=== PATIENT | female | born 1995 | race Caucasian/White ===

== ENCOUNTER → 2017-11-12 | Outpatient (CLI) | payer BC ==
[2017-11-12 14:03] LABS: HCG, SERUM QUANTITATIVE 12352 MIU/ML
== END ==
LOC: M SMT 11:41
DX: O20.0 Threatened abortion (principal)
CPT/HCPCS: 84702

== ENCOUNTER → 2017-11-15 | Outpatient (CLI) | payer BC ==
[2017-11-15 19:42] LABS: HCG, SERUM QUANTITATIVE 14076 MIU/ML
== END ==
LOC: M SMT 11:39
DX: O20.0 Threatened abortion (principal)
CPT/HCPCS: 84702

== ENCOUNTER 2017-11-19 12:53 | Day surgery (SDC) | payer BC ==
[2017-11-19] MEDS ORDERED: LIDOCAINE 1% SDV 5 ML VIAL SQ (13:00)
[2017-11-19 13:21] LABS: HEMATOCRIT 40.1 % (36.0-47.0); HEMOGLOBIN 13.9 g/dl (12.0-15.5); MEAN CORPUSCULAR HEMOGLOBIN 29.2 pg (27.0-33.0); MEAN CORPUSCULAR HGB CONC 34.7 g/dl (32.0-36.5); MEAN CORPUSCULAR VOLUME 84.2 fl (80.0-96.0); PLATELET COUNT, AUTOMATED 312 10^3/uL (150-450); RED BLOOD COUNT 4.76 10^6/uL (4.00-5.40); RED CELL DISTRIBUTION WIDTH 11.9 % (11.5-14.5); WHITE BLOOD COUNT 5.5 10^3/uL (4.0-10.0)
[2017-11-19] MEDS: LR 1,000 ML IV (13:41)
[2017-11-19] MEDS ORDERED: MIDAZOLAM INJ 2 MG/2 ML VIAL (J2250) As Ordered (13:52)
[2017-11-19] MEDS ORDERED: LIDOCAINE 2% INJ 100 MG/5 ML SDV (FOR ANES.) As Ordered (13:53)
[2017-11-19] MEDS ORDERED: ONDANSETRON 4MG/2ML VIAL (J2405) As Ordered (13:53)
[2017-11-19] MEDS ORDERED: KETOROLAC 60 MG/2 ML VIAL (J1885) As Ordered (13:53)
[2017-11-19] MEDS ORDERED: fentaNYL 100 MCG/2 ML INJECTION (J3010) As Ordered ×2 (13:53→14:39)
[2017-11-19] MEDS ORDERED: PROPOFOL 200 MG/20 ML VIAL As Ordered (13:53)
[2017-11-19] MEDS ORDERED: dexameTHASONE 4 MG/ML 1ML VIAL (J1100) As Ordered (13:53)
[2017-11-19] MEDS ORDERED: METOCLOPRAMIDE INJ 10MG/2ML VIAL (J2765) As Ordered (13:53)
[2017-11-19] MEDS: DOXYCYCLINE HYCLATE 100 MG in D5W MINI-BAG PLUS 100 ML IV (14:11)
[2017-11-19] MEDS: METHYLERGONOVINE MALEATE 0.2 MG/ML VIAL (J2210) As Ordered (14:41)
[2017-11-19] MEDS ORDERED: NALOXONE INJ 0.4 MG/1 ML VIAL (J2310) As Ordered (14:49)
[2017-11-19] MEDS ORDERED: LR 1,000 ML IV ×2 (15:30)
[2017-11-19] MEDS ORDERED: fentaNYL 100 MCG/2 ML INJECTION (J3010) IV (15:30)
[2017-11-19] MEDS ORDERED: ONDANSETRON 4MG/2ML VIAL (J2405) IV (15:30)
[2017-11-19] MEDS: DOXYCYCLINE HYCLATE 100 MG TAB PO (15:56)
== END 2017-11-19 18:43 | disposition home or self-care (01) ==
LOC: M SDC 12:53
DX: O02.1 Missed abortion (principal)
CPT/HCPCS: 59820

== ENCOUNTER → 2018-08-08 | Outpatient (CLI) | payer BC ==
[2018-08-08 13:24] LABS: BASO % 0.5 % (0.0-1.0); EOS # 0.1 10^3/uL (0.0-0.50); EOS % 2.1 % (0.0-3.0); HEMATOCRIT 41.8 % (36.0-47.0); HEMOGLOBIN 14.3 g/dl (12.0-15.5); LYMPH # 2.3 10^3/uL (1.5-6.5); LYMPH % 35.1 % (24.0-44.0); MEAN CORPUSCULAR HEMOGLOBIN 29.2 pg (27.0-33.0); MEAN CORPUSCULAR HGB CONC 34.2 g/dl (32.0-36.5); MEAN CORPUSCULAR VOLUME 85.5 fl (80.0-96.0); MONO # 0.6 10^3/uL (0.0-0.8); MONO % 8.9 % (0.0-5.0); NEUTROPHILS # 3.5 10^3/uL (1.8-7.7); NEUTROPHILS % 53.2 % (36.0-66.0); PLATELET COUNT, AUTOMATED 287 10^3/uL (150-450); RED BLOOD COUNT 4.89 10^6/uL (4.00-5.40); WHITE BLOOD COUNT 6.6 10^3/uL (4.0-10.0)
[2018-08-08 14:15] LABS: HEPATITIS C VIRUS ABY INDEX 0.1 INDEX (<0.8); HIV 1&2 SCREEN CENTAUR NEGATIVE (NEGATIVE); RUBELLA IgG QUALITATIVE IMMUNE (IMMUNE)
[2018-08-08 15:22] LABS: CHLAMYDIA DNA AMPLIFICATION NEGATIVE (NEGATIVE); GC DNA AMPLIFICATION NEGATIVE (NEGATIVE)
== END ==
LOC: M SMT 10:08
PROVIDERS: ATTEND Specialist
DX: Z36.89 Encounter for other specified antenatal screening (principal); Z3A.10 10 weeks gestation of pregnancy

== ENCOUNTER → 2018-10-10 | Outpatient (CLI) | payer BC ==
--- NOTE | 2018-10-10 11:21 | REP ---
OB ULTRASOUND: Real-time sonographic evaluation of the gravid uterus is performed. There is a single living intrauterine gestation. Estimated gestational age 19 weeks 2 days, EDC 03/04/2019. Today's measurements indicate appropriate growth. BPD 44 mm = 19 weeks 2 days, 51st percentile HC 168 mm = 19 weeks 3 days, 54th percentile AC 151 mm = 20 weeks 3 days, 73rd percentile Femur length 32 mm = 19 weeks 6 days, 63rd percentile HC/AC ratio 1.11 within normal range. Estimated weight 327 grams, 74th percentile. Cervix is closed and measures 5 cm in length. heart rate 146 beats per minute. SEEN/GROSSLY UNREMARKABLE Lateral ventricles Yes Posterior fossa Yes Upper lip Yes Four-chamber heart Yes LVOT Yes RVOT Yes Stomach Yes Cord insertion Yes Three vessel cord Yes Kidneys Yes Bladder Yes Spine Yes position: Variable. Placenta: Anterior and grade 0 with no previa or abruption. Amniotic fluid: Within normal limits. Electronically Signed by Juan Gibson MD 10/10/2018 12:47 P
== END ==
LOC: M RAD 10:18
PROVIDERS: ATTEND Obstetrics & Gynecology
DX: Z36.89 Encounter for other specified antenatal screening (principal); Z3A.19 19 weeks gestation of pregnancy

== ENCOUNTER → 2018-11-17 | Outpatient (CLI) | payer BC ==
[2018-11-17 13:16] LABS: BASO % 0.5 % (0.0-1.0); EOS # 0.1 10^3/uL (0.0-0.50); HEMATOCRIT 38.6 % (36.0-47.0); HEMOGLOBIN 12.8 g/dl (12.0-15.5); LYMPH # 1.9 10^3/uL (1.5-6.5); LYMPH % 23.2 % (24.0-44.0); MEAN CORPUSCULAR HEMOGLOBIN 30.4 pg (27.0-33.0); MEAN CORPUSCULAR HGB CONC 33.2 g/dl (32.0-36.5); MEAN CORPUSCULAR VOLUME 91.7 fl (80.0-96.0); MONO # 0.6 10^3/uL (0.0-0.8); MONO % 6.7 % (0.0-5.0); NEUTROPHILS # 5.6 10^3/uL (1.8-7.7); NEUTROPHILS % 68.1 % (36.0-66.0); PLATELET COUNT, AUTOMATED 243 10^3/uL (150-450); RED BLOOD COUNT 4.21 10^6/uL (4.00-5.40); WHITE BLOOD COUNT 8.2 10^3/uL (4.0-10.0)
[2018-11-17 13:45] LABS: CREATININE,RANDOM URINE 36.6 MG/DL; TOTAL PROTEIN,RANDOM URINE < 5.0 MG/DL (0.0-12.0)
[2018-11-17 13:50] LABS: ALT/SGPT 14 U/L (12-78); BILIRUBIN,TOTAL 0.3 MG/DL (0.2-1.0); CREATININE FOR GFR 0.57 MG/DL (0.55-1.30); GLOMERULAR FILTRATION RATE > 60.0 (>60); LDH LACTATE DEHYDROGENASE 193 U/L (84-246); URIC ACID 3.1 MG/DL (2.6-6.0)
== END ==
LOC: M SMT 09:47
PROVIDERS: ATTEND Advanced Practice Midwife
DX: R03.0 Elevated blood-pressure reading, without diagnosis of hypertension (principal); Z34.82 Encounter for supervision of other normal pregnancy, second trimester; Z3A.00 Weeks of gestation of pregnancy not specified

== ENCOUNTER → 2019-01-06 | Outpatient (CLI) | payer BC ==
--- NOTE | 2019-01-06 09:57 | REP ---
Clinical: Maternal hypertension. Comparison: 10/10/2018 . Findings: Examination demonstrates a single live intrauterine in cephalic presentation. motion is identified by technologist. Placenta is noted anterior and grade zero without evidence for placenta previa or abruption. Amniotic fluid volume is normal. Cervix appears closed. No evidence for nuchal cord. Gestational age by LMP 31 weeks 6 days with SYMONE 03/04/2019 . Gestational age by current measurements 32 weeks 2 days with SYMONE 03/01/2019 . FHR equals 128 beats per minute. BPD 8.1 cm 32 weeks 4 days HC 29.8 cm 33 weeks 0 days AC 27.3 cm 31 weeks 3 days FL 6.0 cm 31 weeks 2 days HL 5.5 cm 32 weeks 0 days HC/AC ratio 1.09 Estimated weight 1797 grams ( 37 percentile). Anatomical assessment demonstrates normal structures including cranium, choroid plexus, cavum, cerebellum/posterior fossa, facial features, lungs, four-chamber heart/ventricular outflow tracts, diaphragm, stomach, cord insertion/three-vessel cord, kidneys/bladder, and spine. Impression: Single live intrauterine in cephalic presentation demonstrating appropriate interval growth. No gross abnormalities are identified. Electronically Signed by Jared Gallegos MD 01/06/2019 09:49 A
== END ==
LOC: M RAD 08:55
PROVIDERS: ATTEND Advanced Practice Midwife
DX: O13.3 Gestational [pregnancy-induced] hypertension without significant proteinuria, third trimester (principal); Z3A.32 32 weeks gestation of pregnancy

== ENCOUNTER → 2019-01-27 | Outpatient (CLI) | payer BC ==
[~2019-01-27] MED LIST: AMOX875T2 PO; LABE100T36 PO; MULTTAB20 PO
--- NOTE | 2019-01-27 14:03 | REP ---
OB ULTRASOUND: Real-time sonographic evaluation of gravid uterus performed. There is a single living intrauterine gestation, estimated gestational age 34 weeks 6 days, EDC 03/04/2019. Today's measurements indicate appropriate growth. BPD 85 mm = 34 weeks 1 day, 38th percentile HC 315 mm = 35 weeks 3 days, 58th percentile AC 310 mm = 35 weeks 0 days, 51st percentile Femur length 67 mm = 34 weeks 2 days, 41st percentile HC/AC ratio 1.02, within normal range. Estimated weight 2500 grams, 45th percentile. Cervix closed and measures 4.3 cm in length. heart rate 131 beats per minute. Amniotic fluid within normal limits, ASHA 12.2 within normal range of 7.9 and 24.9. S/D ratio 2.74, below normal range of 3.0 to 4.0. RI 0.63, at lower limits of normal range 0.63 - 0.79. Visualized anatomy includes posterior fossa, upper lip, four-chamber heart, left ventricular outflow tract, stomach, three-vessel cord, kidneys and bladder, which are all grossly unremarkable. position vertex. Placenta anterior and grade 2 with no previa or abruption. Electronically Signed by Juan Gibson MD 01/29/2019 07:28 P
== END ==
LOC: M RAD 11:00
PROVIDERS: ATTEND Advanced Practice Midwife
DX: O13.3 Gestational [pregnancy-induced] hypertension without significant proteinuria, third trimester (principal)

== ENCOUNTER → 2019-02-02 | Outpatient (REF) | payer BC | LOC: M LAB REF 13:17 | PROVIDERS: ATTEND Advanced Practice Midwife | DX: O13.3 Gestational [pregnancy-induced] hypertension without significant proteinuria, third trimester (principal) ==

== ENCOUNTER 2019-02-07 04:03 | Inpatient (IN) | payer BC ==
[~2019-02-07] VITALS: Ht 167.6 cm; Wt 77.5 kg
[2019-02-07] VITALS (13 sets, daily range): BP systolic 115–155; BP diastolic 63–90
[2019-02-07] MEDS ORDERED: LACTATED RINGER'S 1000 ML IV STA (04:34)
[2019-02-07] MEDS ORDERED: LABE100T36 PO (04:38)
[2019-02-07] MEDS ORDERED: MULTTAB20 PO (04:38)
[2019-02-07] MEDS ORDERED: AMOX875T2 PO (04:38)
[2019-02-07] MEDS ORDERED: BETAMETHASONE SOLUSPAN 6MG/ML INJ 5ML (J0702) IM SCH (05:00)
[2019-02-07 05:18] LABS: HEMATOCRIT 37.6 % (36.0-47.0); HEMOGLOBIN 12.9 g/dl (12.0-15.5); MEAN CORPUSCULAR HEMOGLOBIN 29.5 pg (27.0-33.0); MEAN CORPUSCULAR HGB CONC 34.3 g/dl (32.0-36.5); PLATELET COUNT, AUTOMATED 275 10^3/uL (150-450); RED BLOOD COUNT 4.37 10^6/uL (4.00-5.40); WHITE BLOOD COUNT 10.1 10^3/uL (4.0-10.0)
[2019-02-07] MEDS ORDERED: FENTANYL 2MCG/ML ROPIVACAINE 0.2% IN 0.9% NACL 100ML IVBAG As Ordered ONE (06:42)
[2019-02-07] MEDS ORDERED: OXYTOCIN 30 UNITS IN 0.9% NaCl 500ML IV BAG (J2590) As Ordered ONE (06:49)
[2019-02-07] MEDS ORDERED: LIDOCAINE 1% MDV 20ML VIAL INFIL ONE (07:45)
[2019-02-07] MEDS ORDERED: ANUSOL HC CREAM 30GM TOP PRN (07:45)
[2019-02-07] MEDS ORDERED: IBUPROFEN 800 MG TAB PO PRN (07:45)
[2019-02-07] MEDS ORDERED: MEASLES,MUMPS,RUBELLA VACCINE INJ (MMR-II) (90707) SC SCH (07:45)
[2019-02-07] MEDS ORDERED: OXYTOCIN DRIP 30 UNITS in APPROPRIATE DILUENT 1 EA IV SCH (07:45)
[2019-02-07] MEDS ORDERED: IBUPROFEN 600 MG TAB PO PRN (07:45)
[2019-02-07] MEDS ORDERED: DIBUCAINE 1% OINTMENT 30GM TOP PRN (07:45)
[2019-02-07] MEDS ORDERED: RHOGAM 300 MCG (1500 IU) INJ (J2790) IM SCH (07:45)
[2019-02-07] MEDS ORDERED: METHYLERGONOVINE MALEATE 0.2 MG TAB PO PRN (07:45)
[2019-02-07] MEDS ORDERED: DOCUSATE SODIUM 100 MG CAP PO PRN (07:45)
[2019-02-07] MEDS ORDERED: ALBUTEROL SULFATE 2.5 MG/0.5 ML INH NEB SOLN NEB ONE (08:00)
--- NOTE | 2019-02-07 10:18 | HPE ---
DATE OF ADMISSION: 02/07/2019 HISTORY OF PRESENT ILLNESS: Patient is a 23-year-old female who was a 2 para 0 0 1 0 at 36 weeks and 3 days gestation with an SYMONE of 03/04/2019 based off of her LMP consistent with her first trimester ultrasound. The patient initiated care in her first trimester with [facility]. Her has been complicated by gestational hypertension which was diagnosed at 24 weeks gestation where she started labetalol 100 mg twice a day. The patient presents to labor and delivery tonight with complaints of contractions and bloody show. In the bathroom while in triage she noted that she had a gush of fluid consistent with spontaneous rupture of fluid. She reports active movement. PAST PREGNANCIES: In November 2017 the patient a MAB with a D&C. LABS: Blood type is O+ with a negative antibody screen. Her hemoglobin and hematocrit in her first trimester was 14.3 and 41.8 with platelets of 287. Her rubella is immune and her VDRL is nonreactive. Her urine culture showed no growth. Hepatitis B surface antigen is negative. HIV is negative. Hepatitis C is nonreactive. Gonorrhea and Chlamydia are both negative. She declined genetic testing. Her 1 hour glucose tolerance test was 88. The hemoglobin and hematocrit in her 3rd trimester of 12.3 and 36.1 with platelets of 231. Patient's GBS was negative. Her preeclamptic labs were all normal. PAST MEDICAL HISTORY: Gestational hypertension during , otherwise no pertinent medical history. SURGICAL HISTORY: Fibroid tumor removed from her breast at the age of 15, and the D and C. FAMILY HISTORY: Noncontributory. SOCIAL HISTORY: Patient denies any history of sexually transmitted infection. She denies any history of abuse, physical, emotional or sexual. She denies history of alcohol or illicit drug use prior to or during . She denies being a smoker. HEART RATE: 135, moderate variability, positive accelerations, no decelerations. Contractions are every 1-2 minutes. VITAL SIGNS: 128/67, heart rate 115, respiratory rate 18 and temperature 98.6. SVE: Large amount of clear fluid noted in the vaginal vault, Positive Nitrazine and positive pooling. SVE: 3/90/ -1. PHYSICAL ASSESSMENT: GENERAL: Alert and oriented times three. RESPIRATORY: Regular rate and no use of accessory muscles. ABDOMEN: Gravid and nontender to touch. Cephalic presentation noted via Gabriel's and SVE. LOWER EXTREMITIES: No edema. No clonus. ASSESSMENT: Intrauterine at 36.3 weeks gestation, negative GBS, category 1 heart rate tracing, premature rupture or membranes, active labor. Admit the patient to labor and delivery, saline lock and labs per unit protocol. Out of bed at poli. Clear liquid diet. Betamethasone injection to be given now. Anesthesia consult per patient's request. Neonatology consult. Anticipate cervical change and spontaneous vaginal delivery. MTDD
[2019-02-07] MEDS: PRENATAL VITAMINS CHEWABLE TABLET PO SCH (10:50)
[2019-02-07] MEDS: AUGMENTIN 875 MG TAB PO SCH ×2 (10:50→20:33)
[2019-02-07 13:21] LABS: ALT/SGPT 22 U/L (12-78); BILIRUBIN,TOTAL 1.1 MG/DL (0.2-1.0); CREATININE FOR GFR 0.49 MG/DL (0.55-1.30); GLOMERULAR FILTRATION RATE > 60.0 (>60); LDH LACTATE DEHYDROGENASE 238 U/L (84-246); URIC ACID 3.6 MG/DL (2.6-6.0)
--- NOTE | 2019-02-07 14:30 | DN ---
DATE: 02/07/2019 TIME: 0658 hours STATUS: Delivered, spontaneous vaginal delivery. PROVIDER: Olga Araujo CNM, [facility] ANESTHESIA: None. ESTIMATED BLOOD LOSS: 400 FINDINGS: Male, 6 pounds 7 ounces, 2910 grams, scores 7 and 9, nuchal cord times one tight, labor, premature rupture of membranes. The patient is a 23-year-old female who is now a 2, para 0-1-1-1 at 36 weeks 6 days gestation who presented to labor and delivery with complaints of contractions and bloody show. Upon arrival, her water broke with clear fluid. The patient progressed to fully at 0646 hours and pushed to a living male in the JER position with restitution to ROT. A nuchal cord times one tight was noted. The anterior shoulder delivered with ease and the corpus immediately followed. The baby was placed on the maternal abdomen and was active and crying with stimulation. The cord was clamped times two after pulsations ceased and cut by the father of the baby. A three vessel cord was noted. The placenta delivered spontaneously and intact at 0703 hours. Uterine hemostasis was achieved via rapid infusion of IV Pitocin and fundal massage. The perineum, vaginal, and cervix were inspected and found to have a first degree perineal laceration that was repaired with a 3-[address]-1. Hemostasis was achieved. The mother received one dose of betamethasone prior to delivery. A dose of albuterol nebulizer was ordered due to wheezing in the patient's lungs bilaterally. She is to continue with Augmentin as prescribed for a sinus infection. Both mother and baby are in stable condition. All counts of instruments and sponges were correct. MTDD
[2019-02-07] MEDS ORDERED: SLF 3 ML SYR IV PRN (18:30)
[2019-02-07] MEDS: LABETALOL 100 MG TAB PO SCH (20:34)
[2019-02-07] MEDS: SLF 3 ML SYR IV SCH (22:36)
[2019-02-08 02:00] VITALS: BP 123/67
[2019-02-08 06:00] VITALS: BP 122/68
[2019-02-08] MEDS: SLF 3 ML SYR IV SCH ×3 (06:55→22:30)
--- NOTE | 2019-02-08 07:42 | NUR ---
PPD#1 S: Doing well w/o complaints. Decreasing lochia. Pain well controlled. O: vss, AF gen: well appearing abd: soft, nttp, FF@u-2 ext: neg calf tenderness A/P: 23yo s/p NSD recovering in stable condition -cont routine care -d/c plans for tomorrow Jasmin Ascencio MD
[2019-02-08] MEDS: AUGMENTIN 875 MG TAB PO SCH ×2 (09:25→21:05)
[2019-02-08] MEDS: PRENATAL VITAMINS CHEWABLE TABLET PO SCH (09:25)
[2019-02-08] MEDS: LABETALOL 100 MG TAB PO SCH ×2 (09:26→21:05)
[2019-02-08 14:00] VITALS: BP 123/74
[2019-02-08 18:00] VITALS: BP 122/69
[2019-02-08 21:15] VITALS: BP 114/57
[2019-02-09 02:00] VITALS: BP 119/67
[2019-02-09 06:00] VITALS: BP 117/65
[2019-02-09 07:46] VITALS: BP 117/61
[2019-02-09] MEDS: AUGMENTIN 875 MG TAB PO SCH (07:46)
[2019-02-09] MEDS: LABETALOL 100 MG TAB PO SCH (07:46)
[2019-02-09] MEDS: PRENATAL VITAMINS CHEWABLE TABLET PO SCH (07:46)
[2019-02-09 10:13] VITALS: BP 112/58
== END 2019-02-09 12:30 | disposition home or self-care (01) | DRG 560 ==
LOC: M LDO 04:03 → M LDI 04:46 → M OBS 09:37
PROVIDERS: ADMIT Advanced Practice Midwife; ATTEND Advanced Practice Midwife
PROC: 10E0XZZ Delivery of Products of Conception, External Approach (ICD-10-PCS; principal; 2019-02-07)
PROC: 0HQ9XZZ Repair Perineum Skin, External Approach (ICD-10-PCS; 2019-02-07)
DX: O42.013 Preterm premature rupture of membranes, onset of labor within 24 hours of rupture, third trimester (principal); O69.1XX0 Labor and delivery complicated by cord around neck, with compression, not applicable or unspecified; Z3A.36 36 weeks gestation of pregnancy; O70.0 First degree perineal laceration during delivery; Z37.0 Single live birth; O13.4 Gestational [pregnancy-induced] hypertension without significant proteinuria, complicating childbirth

== ENCOUNTER → 2019-05-31 | Outpatient (REF) | payer BC | LOC: M LAB REF 17:14 | PROVIDERS: ATTEND Advanced Practice Midwife | DX: Z12.4 Encounter for screening for malignant neoplasm of cervix (principal) ==

== ENCOUNTER → 2019-06-02 | Outpatient (CLI) | payer BC ==
--- NOTE | 2019-06-02 14:52 | REP ---
ULTRASOUND LEFT BREAST: Real-time sonographic evaluation of the left breast performed at the site of a palpable lump in the region of 10 o'clock. There is a predominantly solid heterogeneous nodule superficially at 10 o'clock measuring 1.5 x 1.2 x 1.8 cm. Multiple tiny cystic areas are seen within the nodule. At 9 o'clock there is a 7 mm hypoechoic nodule. IMPRESSION: ACR 4 suspicious. Solid nodule at the palpable lump 10 o'clock maximum diameter 1.8 cm. Recommend ultrasound guided biopsy. In addition there is a hypoechoic nodule at 9 o'clock measuring 7 mm in diameter. Recommend either ultrasound guided biopsy or followup 6 month ultrasound. Electronically Signed by Juan Gibson MD 06/05/2019 09:34 A
== END ==
LOC: M RAD 09:00
PROVIDERS: ATTEND Advanced Practice Midwife
DX: N63.22 Unspecified lump in the left breast, upper inner quadrant (principal)

== ENCOUNTER → 2019-06-21 | Outpatient (CLI) | payer BC ==
[~2019-06-21] MED LIST changes: +LIDOCAINE 1% MDV 20ML VIAL As Ordered ONE; +SODIUM BICARBONATE 8.4% INJ 50MEQ 50 ML VIAL As Ordered ONE
[2019-06-21 12:10] VITALS: BP 133/82
--- NOTE | 2019-06-21 14:54 | ROOPDOC ---
[facility] Report Of Operation Report of Operation DATE OF PROCEDURE: 06/21/19 PREPROCEDURE DIAGNOSES: Left breast masses POSTPROCEDURE DIAGNOSES: left breast masses PROCEDURE: Ultrasound guided left breast biopsy x2 SURGEON: Yovanny Deras AUTO PAINTER HELPER: ANESTHESIA: local anesthetic, 16 cc of mix 10:1 1% lidocaine (lot [id number], expiration Aug 2011) and 8.4% sodium bicarbonate (lot [id number], expiration Mar 2020) ESTIMATED BLOOD LOSS: scant COMPLICATIONS: milk leak from the lower biopsy track DESCRIPTION OF PROCEDURE: Informed consent was obtained in the preop area. The most common risk and possible complications including bleeding, hematoma, bruising, infection, injury to surrounding structures and development of milk fistula were explained to the patient and her mom. Patient expressed understanding. Patient was asked to use breast pump immediately prior to procedure. Patient was taken to the procedure room and placed on the bed in the supine posi tion. Appropriate time out was done stating patients name, date of , and the procedure to be performed. The left breast was prepped and draped in the usual fashion. The ultrasound was used to confirm the location of the main lesion in the left breast at 10:00 3 centimeters from the nipple and the one smaller lesion inferior to that at 9:00. Mix of plain Lidocaine 1% and 8.4 % sodium bicarbonate proportion 10:1 was used to numb the skin, the biopsy site and tissues along the anticipated biopsy tract of the lesion located at 10:00. Small skin incision was made with blade number 11. Temno 17 G introducer and the cannula were inserted through the incision and advanced under the ultrasound guidance to position immediately adjacent to the lesion. Next the introducer was removed and the 18 G Temno biopsy device was inserted in its place. Pre-biopsy imaging, and post-biopsy imaging was captured. Five core biopsies of the left breast mass were taken. Specimen was marked Left breast mass 10:00. Next, the biopsy device was withdrawn and a clip introducer was inserted into the biopsy site. The clip was deployed under direct vision. Post-clip placement image was captured. Manual pressure over the biopsy cavity and tract was held after the clip introducer was withdrawn. No bleeding was noted upon removal of the pressure. Postprocedural dressing was placed. Next, our attention was turned toward the inferior lesion. Again, mix of plain Lidocaine 1% and 8.4 % sodium bicarbonate proportion 10:1 was used to numb the s kin, the biopsy site and tissues along the anticipated biopsy tract of the lesion located at 9:00. Small skin incision was made with blade number 11. Temno 17 G introducer and the cannula were inserted through the incision and advanced under the ultrasound guidance to position immediately adjacent to the lesion. Next the introducer was removed and the 18 G Temno biopsy device was inserted in its place. Pre-biopsy imaging, and post-biopsy imaging was captured. Four core biopsies of the left breast mass were taken. Specimen was marked Left breast mass 9:00.Th biopsy device was withdrawn and a clip introducer was inserted into the biopsy site. The clip was deployed under direct vision. Post- clip placement image was captured. Manual pressure over the biopsy cavity and tract was held after the clip introducer was withdrawn. There was small amount of blood mixed with milk noted. Additional pressure was help over the incision site and biopsy track and when the area was dry the postprocedural dressing was placed. Patient tolerated procedure well and was taken to the recovery unit in stable condition. She was asked again to use the breast pump in PACU. Some small ooze was noted from the inferior biopsy track. The postprocedure dressing was removed and pressure was held. Due to some mild drainage the site was left open and bulky dressing was placed and secured with JULIO wrap. Patient was instructed to not position her breast pump over the incision and to keep the bulky dressing in place. Discharge instructions were discussed with the patient and she expressed understanding. YOVANNY DERAS DO Jun 21, 2019 14:53
== END ==
LOC: M IRPRO 11:52
PROVIDERS: ATTEND Surgery
DX: N60.22 Fibroadenosis of left breast (principal)

== ENCOUNTER → 2019-11-10 | Outpatient (CLI) | payer BC ==
[~2019-11-10] MED LIST changes: -LIDOCAINE 1% MDV 20ML VIAL As Ordered ONE; -SODIUM BICARBONATE 8.4% INJ 50MEQ 50 ML VIAL As Ordered ONE
--- NOTE | 2019-11-10 15:35 | REP ---
FOCUSED LEFT BREAST SONOGRAPHY: HISTORY: Left breast palpable lesion at 10-o'clock position and second lesion at 9-o'clock position. Status post benign biopsy. Assess stability. Comparison sonography, June 02, 2019. Ultrasound-guided needle biopsy imaging June 21, 2019. SONOGRAPHIC FINDINGS: A solid hypoechoic oval-shaped nodule is again seen with its long axis parallel to the skin in the superficial breast soft tissues at 10-o'clock position corresponding to the palpable area. This measures 2.2 x 0.8 x 1.6 cm. Previous dimensions were measured at 1.8 x 1.2 x 1.5 cm. Overall, it appears unchanged. There is a cystic area adjacent to the nodule. This contains an echogenic linear structure which may be a HydroMARK biopsy clip. At 7-o'clock position, a hypoechoic area is again seen measuring 0.5 x 0.4 x 0.3 cm with a clip seen within this. IMPRESSION: BIRADS 2: BI-RADS/ACR category 2 mammogram. Benign Findings. Stable BI-RADS category 2 benign findings. No progression seen at previous biopsy sites.
== END ==
LOC: M WHC 11:22
PROVIDERS: ATTEND Surgery
DX: N63.20 Unspecified lump in the left breast, unspecified quadrant (principal)

== ENCOUNTER → 2020-06-17 | Outpatient (CLI) | payer BC ==
--- NOTE | 2020-06-17 18:01 | REP ---
INDICATION: RT BREAST SIGNIFICANT SIZE DISCREPANCY; 6 MONTH F/U LT BREAST LESIONS. Mass upper inner quadrant left breast. Mass lower inner quadrant left breast. Personal history of benign breast biopsy. Patient is currently lactating. Comparison sonography left breast November 10, 2019. COMPARISON: Comparison left breast sonography November 10, 2019. This showed a 2.2 cm hypoechoic solid nodule which had been previously biopsied.. TECHNIQUE: Whole breast ultrasound is performed on the right and targeted left breast ultrasound is carried out. FINDINGS: In the right breast there heterogeneous fibroglandular background echotexture. Numerous tiny cystic areas. No suspicious sonographic features in the right breast. In the right axilla there is a 1.8 x 1.4 x 0.7 cm benign-appearing lymph node without cortical thickening. Cortex measures 2 mm. In the left breast, targeted sonography at the 10 o'clock position demonstrates a 1.6 x 1.9 x 0.8 cm hypoechoic area with a evidence of a clip adjacent to the nodule. This appears unchanged. In the 7 o'clock position of the left breast there is a 4 mm hypoechoic area in the area of a previous biopsy with a hyperechoic focus consistent with a marker clip within it. This appears somewhat less conspicuous. The hydrophilic component of the marker clip is no longer visible. IMPRESSION: Stable breast imaging findings in the left breast. BI-RADS category 2. BI-RADS category 1-findings in the right breast. <Electronically signed by Miah Laird > 06/17/20 [id number]
== END ==
LOC: M WHC 11:28
PROVIDERS: ATTEND Surgery
DX: R92.2 Inconclusive mammogram (principal)

== ENCOUNTER → 2020-09-26 | Outpatient (REF) | payer BC ==
[~2020-09-26] MED LIST changes: -LABE100T36 PO; +LABE100T5 PO
== END ==
LOC: M PLALAB 14:04
PROVIDERS: ATTEND Obstetrics & Gynecology
DX: Z3A.01 Less than 8 weeks gestation of pregnancy (principal); Z53.9 Procedure and treatment not carried out, unspecified reason

== ENCOUNTER → 2020-10-17 | Outpatient (REF) | payer BC ==
[2020-10-17 17:28] LABS: HEMATOCRIT 40.7 % (36.0-47.0); HEMOGLOBIN 13.6 g/dl (12.0-15.5); MEAN CORPUSCULAR HEMOGLOBIN 29.6 pg (27.0-33.0); MEAN CORPUSCULAR HGB CONC 33.4 g/dl (32.0-36.5); MEAN CORPUSCULAR VOLUME 88.5 fl (80.0-96.0); PLATELET COUNT, AUTOMATED 292 10^3/uL (150-450); WHITE BLOOD COUNT 9.2 10^3/uL (4.0-10.0)
[2020-10-17 18:40] LABS: HEPATITIS C VIRUS ABY INDEX < 0.0 INDEX (<0.8); HIV 1&2 SCREEN CENTAUR NEGATIVE (NEGATIVE)
== END ==
LOC: M PLALAB 14:56
PROVIDERS: ATTEND Obstetrics & Gynecology
DX: Z34.01 Encounter for supervision of normal first pregnancy, first trimester (principal); Z3A.01 Less than 8 weeks gestation of pregnancy

== ENCOUNTER → 2021-02-13 | Outpatient (CLI) | payer BC ==
[2021-02-13 13:13] LABS: HEMOGLOBIN 12.4 g/dl (12.0-15.5); MEAN CORPUSCULAR HEMOGLOBIN 29.7 pg (27.0-33.0); MEAN CORPUSCULAR HGB CONC 32.6 g/dl (32.0-36.5); MEAN CORPUSCULAR VOLUME 90.9 fl (80.0-96.0); PLATELET COUNT, AUTOMATED 244 10^3/uL (150-450); RED BLOOD COUNT 4.18 10^6/uL (4.00-5.40)
== END ==
LOC: M PLALAB 10:26
PROVIDERS: ATTEND Advanced Practice Midwife
DX: O09.892 Supervision of other high risk pregnancies, second trimester (principal); Z3A.00 Weeks of gestation of pregnancy not specified

== ENCOUNTER → 2021-03-07 | Outpatient (CLI) | payer BC | LOC: M LAB 06:58 | PROVIDERS: ATTEND Advanced Practice Midwife | DX: O99.810 Abnormal glucose complicating pregnancy (principal) ==

== ENCOUNTER → 2021-04-02 | Outpatient (CLI) | payer BC ==
--- NOTE | 2021-04-02 15:50 | REP ---
INDICATION: GROWTH. COMPARISON: None. TECHNIQUE: Real-time sonographic evaluation of the gravid uterus performed. FINDINGS: Estimated gestational age is33 weeks 6 days, EDC 05/15/2021. Today's measurements indicate appropriate growth. Presentation: Breech Placenta posterior, grade 1, without evidence of placenta previa. heart rate is recorded at 140 beats per minute. Amniotic fluid is subjectively normal. ASHA 17.1, normal 8.1-24.8. Closed cervical length is measured at 5.4 cm. Biometry chart: BPD: 82 mm, 32 weeks 6 days, 36th percentile. HC: 298 mm, 33 weeks 0 days, 36th percentile AC: 285 mm, 32 weeks 4 days, 31st percentile Femur length: 62 mm, 32 weeks 1 days, 25th percentile HC to AC ratio: 1.04, normal range 0.95-1.13. Estimated weight: 1991g, 12th percentile. SD ratio umbilical artery 2.79, normal 1.74-3.69. RI 0.64, normal 0.47-0.73. IMPRESSION: Viable single intrauterine gestation as above. <Electronically signed by Juan Gibson > 04/02/21 [id number]
== END ==
LOC: M WHC 13:18
PROVIDERS: ATTEND Advanced Practice Midwife
DX: O26.843 Uterine size-date discrepancy, third trimester (principal); Z3A.33 33 weeks gestation of pregnancy

== ENCOUNTER → 2021-04-04 | Outpatient (REF) | payer BC | LOC: M SFHCWAGY 16:57 | PROVIDERS: ATTEND Advanced Practice Midwife | DX: O09.893 Supervision of other high risk pregnancies, third trimester (principal) ==

== ENCOUNTER → 2021-04-22 | Outpatient (CLI) | payer BC ==
[2021-04-22 18:10] LABS: HEMATOCRIT 39.4 % (36.0-47.0); HEMOGLOBIN 12.7 g/dl (12.0-15.5); MEAN CORPUSCULAR HEMOGLOBIN 28.4 pg (27.0-33.0); MEAN CORPUSCULAR HGB CONC 32.2 g/dl (32.0-36.5); MEAN CORPUSCULAR VOLUME 88.1 fl (80.0-96.0); PLATELET COUNT, AUTOMATED 210 10^3/uL (150-450); RED BLOOD COUNT 4.47 10^6/uL (4.00-5.40); WHITE BLOOD COUNT 9.7 10^3/uL (4.0-10.0)
[2021-04-22 18:33] LABS: CREATININE,RANDOM URINE 46.1 MG/DL; TOTAL PROTEIN,RANDOM URINE 9.9 MG/DL (0.0-12.0)
[2021-04-22 18:34] LABS: ALT/SGPT 13 U/L (12-78); BILIRUBIN,TOTAL 0.3 MG/DL (0.2-1.0); CREATININE FOR GFR 0.62 MG/DL (0.55-1.30); GLOMERULAR FILTRATION RATE > 60.0 (>60); LDH LACTATE DEHYDROGENASE 202 U/L (84-246); URIC ACID 3.8 MG/DL (2.6-6.0)
== END ==
LOC: M PLALAB 14:10
PROVIDERS: ATTEND Obstetrics & Gynecology
DX: O13.3 Gestational [pregnancy-induced] hypertension without significant proteinuria, third trimester (principal); Z3A.00 Weeks of gestation of pregnancy not specified

== ENCOUNTER → 2021-04-24 | Outpatient (CLI) | payer BC ==
[~2021-04-24] MED LIST changes: +ASPI81CH33 PO; +PRENTAB9 PO
--- NOTE | 2021-04-24 14:57 | REP ---
INDICATION: GROWTH HYPERTENSTION COMPARISON: 04/02/2021 TECHNIQUE: Transabdominal obstetrical ultrasound with color Doppler evaluation. FINDINGS: Examination demonstrates a single live intrauterine in cephalic presentation. motion is identified by technologist. Placenta is noted posteriorly and grade 2 without evidence for placenta previa or abruption. Amniotic fluid volume is normal. Cervix measures 4.0 cm in length and appears closed.. Selected gestational age: 37 weeks 0 days with SYMONE 05/15/2021. Gestational age by current measurements 35 weeks 5 days with SYMONE 05/24/2021. FHR equals 135 beats per minute. BPD: 9.0 cm at 36 weeks 3 days HC: 32.3 cm at 36 weeks 3 days AC: 32.4 cm at 36 weeks 2 days FL: 6.8 cm at 35 weeks 1 day HL: 5.9 cm at 34 weeks 1 day HC/AC: 1.00 Estimated weight 2829 grams (31stpercentile). ASHA: 21.4 cm (7.5-24.4) IMPRESSION: Single live advanced gestation in cephalic presentation demonstrating appropriate estimated weight. <Electronically signed by Jared Gallegos > 04/24/21 [id number]
== END ==
LOC: M WHC 13:32
PROVIDERS: ATTEND Advanced Practice Midwife
DX: O28.5 Abnormal chromosomal and genetic finding on antenatal screening of mother (principal)

== ENCOUNTER 2021-04-27 14:08 | Inpatient (IN) | payer BC ==
[~2021-04-27] VITALS: Ht 162.6 cm; Wt 81.4 kg
[2021-04-27] VITALS (9 sets, daily range): BP systolic 110–135; BP diastolic 73–92
[~2021-04-27 14:08] MED LIST changes: -ASPI81CH33 PO; -PRENTAB9 PO
--- OUTSIDE RECORDS SUMMARY | 2021-04-27 14:12 | CCD | Continuity of Care Document ---
Author Author Missile Technician, Sulema Hoffman Organization Unknown Address Unknown Phone Unavailable Care Team Providers Care Historic Site Administrator Name Role Phone Josh Mclean MD Unavailable Josh Mclean MD Unavailable Problems No Problem Information Available Allergies and Adverse Reactions No Allergy Information Available Medications No Medication Information Available Social History No Social History Information Available Tobacco smoking consumption unknown Female Plan of Treatment Medical; ECHO - 01-02- 21.0w ? Start: 01-Apr-2021 Appointment Request persistent left superior vena cava, 13:00 abnormal NIPT ECHO, [facility] Results No Known Results No Result Information Available Vital Signs No Vital Observation Information Available Payers [employer] Group Number: NONE [address] [address] [place] [address] [place] tel: Sulema Jimenez [address] [place] [address] [place] tel:
--- OUTSIDE RECORDS SUMMARY | 2021-04-27 14:12 | CCD ---
Author Author [email or web address] [facility] Organization [email or web address] Address Unknown Phone Unavailable Care Team Providers Care Leaf Conditioner Name Role Phone GregoryNeris gallardoe Unavailable PROBLEMS Type Condition ICD9-CM Code [id number] Code Onset Dates Condition S tatus W/U Status Risk SNOMED Code Notes Problem Supervision of other normal Z34.80 Ac tive confirm [id number] Problem 11 weeks gestation of Z3A.11 Active confi rmed [id number] ALLERGIES Allergen (clinical drug ingredient) Drug/Non Drug Allergy do cumented on EMR Reaction Allergy Type Onset Date Status acetaminophen Tylenol([facility] Code:[address]-04) Hives Drug Allergy Active ENCOUNTERS from 1995 to 2021-02-14 Encounter Location Date Provider Diagnosis [facility] [address] [place] [address] [place] [address] Feb, Majo Valencia 27 weeks gestatio n of Z3A.27 and Encounter for supervision of other normal in second trimester Z34.82 IMMUNIZATIONS No Information SOCIAL HISTORY Tobacco Use: Social History Observation Description Date Details (start date - stop date) Never Smoker Sex Assigned At : Social History Observation Description Sex Assigned At Female Alcohol Screening: Question Answer Notes Did you have a drink containing alcohol in the past year? No Points 0 Interpretation Negative Tobacco Use: Question Answer Notes Are you a: never smoker REASON FOR REFERRAL No Information VITAL SIGNS Weight 169.4 lbs Feb, Weight-kg 76.84 kg Feb, Height 66 in Feb, BMI 27.342 kg/m2 Feb, Blood pressure systolic 124 mm Hg Feb, Blood pressure diastolic 72 mm Hg Feb, MEDICATIONS Medication SIG (Take, Route, Frequency, Duration) Notes Start Da te End Date Status 27-1 MG 1 tablet Orally Once a day gave 4 months ago Active Keflex 500 MG 1 capsule Orally every 6 hrs for 10 day(s) 1 2 Jun, 2019 Not-Taking Aspirin 81 81 MG 1 tablet Orally Once a day Active Ondansetron HCl 4 MG 1 tablet Orally every 6 hours as needed for nausea 15 Oct, 2020 Not-Taking PROCEDURES No Information RESULTS No Results REASON FOR VISIT 4WK PN MEDICAL (GENERAL) HISTORY Type Description Date Medical History Breast fibroid Medical History Mastitis - left breast Surgical History D&C 2016 Surgical History fibroid removal - right breast 2008 Surgical History u/s guided breast biopsy - left breast, clips placed 06/2019 Hospitalization History childbirth - vaginal 2018 Goals Section No Information Health Concerns No Information MEDICAL EQUIPMENT No Information MENTAL STATUS No Information FUNCTIONAL STATUS No Information ASSESSMENTS Encounter Date Diagnosis Assessment Notes Treatment Notes Treatm ent Clinical Notes Feb, 27 weeks gestation of (ICD-10 - Z3A.27 ) Feb, Encounter for supervision of other normal in second trimester (ICD-10 - Z34.82) PLAN OF TREATMENT Next Appt Details 3 Weeks Reason:- Routine follow up Provider Name:[facility], 2021-03-06 10:40:00 AM, [address] [facility], , [place], [address], Follow Up:3 Weeks- Routine follow up Insurance Providers Payer Name Payer Address Payer Phone Insured Name Patient Relati onship to Insured Coverage Start Date Coverage End Date [place]BS [place] PPO [phone] [facility] [place] [id number] LANA MORTON
--- OUTSIDE RECORDS SUMMARY | 2021-04-27 14:12 | CCD | Continuity of Care Document ---
Author Author Boilers And Pressure Vessels Inspector, Sulema Hoffman Organization Unknown Address Unknown Phone Unavailable Care Team Providers Care Textile Engraver Name Role Phone Olga Araujo CNM Unavailable Josh Mclean MD Unavailable Judy Carter Unavailable Unavailable Problems Suspected abnormality affecting Judy Carter management of mother, antepartum (O35.9XX0) (745.93) Allergies and Adverse Reactions No Allergy Information Available Medications No Medication Information Available Social History No Social History Information Available Tobacco smoking consumption unknown Female Plan of Treatment DOPPLER COLOR FLOW MAPPING (45053) Start: 01-Apr-2021 Int ent ECHO EXAM OF HEART, 2D (82116) Start: 01-Apr-2021 I ntent ECHO EXAM OF HEART, DOPPLER Start: 01-Apr-2021 Inte nt COMPLETE (38922) Results No Known Results No Result Information Available Vital Signs No Vital Observation Information Available Encounters Procedure Only 01-Apr-2021 13:00 Encounter Diagnosis:Suspected To 01-Apr-2021 1 2:42 abnormality affecting management of Pediatric Cardio logy mother, antepartum [facility]oc [facility] Payers [place] Number: NONE [address] [address] [place] [address] tel: Sulema Jimenez [address] [place] [address] [place] tel:
--- OUTSIDE RECORDS SUMMARY | 2021-04-27 14:12 | CCD ---
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 Name Role Phone GregoryPasha gallardolette Unavailable PROBLEMS Type Condition ICD9-CM Code AZO27-CJ Code Onset Dates Condition S tatus W/U Status Risk SNOMED Code Notes Problem Supervision of other normal Z34.80 Ac tive confirm 498265447 Problem 11 weeks gestation of Z3A.11 Active confi rmed [id number] ALLERGIES Allergen (clinical drug ingredient) Drug/Non Drug Allergy do cumented on EMR Reaction Allergy Type Onset Date Status acetaminophen Tylenol([facility] Code:[address]-63) Hives Drug Allergy Active ENCOUNTERS from 1995 to 2021-02-28 Encounter Location Date Provider Diagnosis [facility] [address] [place] [address] [place] [address] Feb, Majo Valencia IMMUNIZATIONS No Information SOCIAL HISTORY Tobacco Use: [...] REASON FOR REFERRAL No Information VITAL SIGNS No information MEDICATIONS Medication SIG (Take, Route, Frequency, Duration) [...] every 6 hours as needed for nausea Oct, Not-Taking PROCEDURES No Information RESULTS No Results REASON FOR VISIT Covid MEDICAL (GENERAL) HISTORY Type Description Date Medical History Breast fibroid Medical History Mastitis - left breast Surgical History D&C 2016 Surgical History fibroid removal - right breast 2008 Surgical History u/s guided breast biopsy - left breast, clips placed 06/2019 Hospitalization History childbirth - vaginal 2019 Goals Section No Information Health Concerns No Information MEDICAL EQUIPMENT No Information MENTAL STATUS No Information FUNCTIONAL STATUS No Information ASSESSMENTS No Information PLAN OF TREATMENT Next Appt Details Provider Name:[facility]ajo [facility], 2021-03-06 10:40:00 AM, [address] [facility], , [place], [address], Insurance Providers Payer Name Payer Address Payer Phone Insured Name Patient Relati onship to Insured Coverage Start Date Coverage End Date BCBS UTI[employer]NG VARGAS PPO [phone] [facility] [employer] [facility] [place] [place] [address] LANA MORTON
--- OUTSIDE RECORDS SUMMARY | 2021-04-27 14:12 | CCD ---
Author Author [employer] [employer] [facility] Organization [employer] Address Unknown Phone Unavailable Care Team Providers Care Cna Name Role Phone Randa Vanegas Unavailable PROBLEMS Type Condition ICD9-CM Code [id number]-GH Code Onset Dates Condition S tatus W/U Status Risk SNOMED Code Notes Problem 11 weeks gestation of Z3A.11 Active confi rmed [id number] Problem Abnormal chromosomal and genetic finding on screening mother O28.5 Active confirmed [id number] Problem Supervision of other normal Z34.80 Ac tive confirm [id number] ALLERGIES Allergen (clinical drug ingredient) Drug/Non Drug Allergy do cumented on EMR Reaction Allergy Type Onset Date Status acetaminophen [facility]ylenol([facility] Code:[address]-67) Hives Drug Allergy Active ENCOUNTERS from 1995 to 2021-04-23 Encounter Location Date Provider Diagnosis [facility] [address] [place] [address] [place] [address] Apr, Randa Vanegas Gestational [pregnan cy-induced] hypertension without significant proteinuria, third trimester O13.3 IMMUNIZATIONS Vaccine Route Administration Date Status TDAP 0.5mL Boostrix IM Intramuscular Mar 06, 2021 Administere d SOCIAL HISTORY Tobacco Use: Social History Observation [...] Notes Start Da te End Date Status Ondansetron HCl 4 MG 1 tablet Orally every 6 hours as needed for nausea Oct, Not-Taking Aspirin 81 81 MG 1 tablet Orally Once a day Active Keflex 500 MG 1 capsule Orally every 6 hrs for 10 day(s) 1 2 Jun, 2019 Not-Taking 27-1 MG 1 tablet Orally Once a day gave 4 months ago Active PROCEDURES No Information RESULTS Component Value Reference Range CBC - Complete Blood Count Reviewed date:04/22/2021 20:55:50 Interpretation: Performing Lab:[facility] LABORATORY [address] [facility] [address] , ,[place] [address] WHITE BLOOD COUNT 9.7 4.0-10.0 RED BLOOD COUNT 4.47 4.00-5.40 HEMOGLOBIN 12.7 12.0-15.5 HEMATOCRIT 39.4 36.0-47.0 MEAN CORPUSCULAR VOLUME 88.1 80.0-96.0 MEAN CORPUSCULAR HEMOGLOBIN 28.4 27.0-33.0 MEAN CORPUSCULAR HGB CONC 32.2 32.0-36.5 RED CELL DISTRIBUTION WIDTH 12.9 11.5-14.5 PLATELET COUNT, AUTOMATED 210 150-450 Pre Eclampsia Profile Reviewed date:04/22/2021 20:56:00 Interpretation: Performing Lab:[facility] LABORATORY [address] [facility] [address] , ,[place] [id number] CREATININE FOR GFR 0.62 0.55-1.30 GLOMERULAR FILTRATION RATE > 60.0 >60 AST/SGOT 15 7-37 ALT/SGPT 13 12-78 LDH LACTATE DEHYDROGENASE 202 84-246 BILIRUBIN,TOTAL 0.3 0.2-1.0 URIC ACID 3.8 2.6-6.0 CREATININE,RANDOM URINE Reviewed date:04/22/2021 20:59:29 Interpretation: Performing Lab:[facility] LABORATORY [address] [facility] [address] , ,[place] [id number] CREATININE,RANDOM URINE 46.1 TOTAL PROTEIN,RANDOM URINE Reviewed date:04/22/2021 21:01:20 Interpretation: Performing Lab:[facility]ly [facility], [facility], [facility] LABORATORY [address] [facility] [address] , ,[place] [address] TOTAL PROTEIN,RANDOM URINE 9.9 0.0-12.0 REASON FOR VISIT blood pressure check MEDICAL (GENERAL) HISTORY Type Description Date Medical [...] Notes Treatment Notes Treatm ent Clinical Notes Apr, Gestational [-induc ed] hypertension without significant proteinuria, third trimester (ICD-10 - O13.3) PLAN OF TREATMENT Next Appt Details Provider Name:Olga Yasmin Araujo, 2021-04-24 03:40:00 PM, [address] [facility], , [place], [address], Insurance Providers Payer Name Payer Address Payer Phone Insured Name Patient Relati onship to Insured Coverage Start Date Coverage End Date BCBS HUBER VARGAS PPO [phone] [facility] [employer] [facility] [place] [id number] LANA MORTON
--- OUTSIDE RECORDS SUMMARY | 2021-04-27 14:12 | CCD ---
Author Author [facility] Organization [facility] Address Unknown Phone Unavailable Care Team Providers Care Research Professional Name Role Phone Mickie Patel BLUE SPLIT TRIMMER Unavailable Unavailable JorgeMickie leslie BLUE SPLIT TRIMMER Unavailable Unavailable JorgeMickie leslie BLUE SPLIT TRIMMER Unavailable Unavailable JorgeMickie lselie BLUE SPLIT TRIMMER Unavailable Unavailable JorgeMickie leslie BLUE SPLIT TRIMMER Unavailable Unavailable JorgeMickie leslie BLUE SPLIT TRIMMER Unavailable Unavailable JorgeMickie lesile BLUE SPLIT TRIMMER Unavailable Unavailable JorgeMickie leslie BLUE SPLIT TRIMMER Unavailable Unavailable JorgeMickie leslie BLUE SPLIT TRIMMER Unavailable Unavailable JorgeMickie leslie BLUE SPLIT TRIMMER Unavailable Unavailable JorgeMickie leslie BLUE SPLIT TRIMMER Unavailable Unavailable JorgeMickie leslie BLUE SPLIT TRIMMER Unavailable Unavailable Jorge, Corado Lisa BLUE SPLIT TRIMMER Unavailable Unavailable Jorge, Corado Lisa BLUE SPLIT TRIMMER Unavailable Unavailable Jorge, Mickie Lisa BLUE SPLIT TRIMMER Unavailable Unavailable Jorge, Mickie Lisa BLUE SPLIT TRIMMER Unavailable Unavailable Jorge, Mickie Lisa BLUE SPLIT TRIMMER Unavailable Unavailable Jorge, Mickie Lisa BLUE SPLIT TRIMMER Unavailable Unavailable Jorge, Mickie Lisa BLUE SPLIT TRIMMER Unavailable Unavailable Jorge, Mickie Lisa BLUE SPLIT TRIMMER Unavailable Unavailable Jorge, Mickie Lisa BLUE SPLIT TRIMMER Unavailable Unavailable Jorge, Mickie Lisa BLUE SPLIT TRIMMER Unavailable Unavailable Jorge, Mickie Lisa BLUE SPLIT TRIMMER Unavailable Unavailable Jorge, Mickie Lisa BLUE SPLIT TRIMMER Unavailable Unavailable Jorge, Mickie Lisa BLUE SPLIT TRIMMER Unavailable Unavailable Jorge, Mickie Lisa BLUE SPLIT TRIMMER Unavailable Unavailable Jorge, Mickie Lisa BLUE SPLIT TRIMMER Unavailable Unavailable Jorge, Mickie Lisa BLUE SPLIT TRIMMER Unavailable Unavailable Feola, T Minda PA Unavailable Unavailable Feola, T Minda PA Unavailable Unavailable Feola, T Minda PA Unavailable Unavailable Feola, T Minda PA Unavailable Unavailable Feola, T Minda PA Unavailable Unavailable Feola, T Minda PA Unavailable Unavailable Feola, T Minda PA Unavailable Unavailable Feola, T Minda PA Unavailable Unavailable Feola, T Minda PA Unavailable Unavailable Feola, T Minda PA Unavailable Unavailable Feola, T Minda PA Unavailable Unavailable Feola, T Minda PA Unavailable Unavailable Feola, T Minda PA Unavailable Unavailable Feola, T Minda PA Unavailable Unavailable Feola, T Minda PA Unavailable Unavailable Feola, T Minda PA Unavailable Unavailable Feola, T Minda PA Unavailable Unavailable Feola, T Minda PA Unavailable Unavailable Feola, T Minda PA Unavailable Unavailable Feola, T Minda PA Unavailable Unavailable Feola, T Minda PA Unavailable Unavailable Feola, T Minda PA Unavailable Unavailable Feola, T Minda PA Unavailable Unavailable Feola, T Minda PA Unavailable Unavailable Feola, T Minda PA Unavailable Unavailable Feola, T Minda PA Unavailable Unavailable Feola, T Minda PA Unavailable Unavailable Feola, T Minda PA Unavailable Unavailable Feola, T Minda PA Unavailable Unavailable Feola, T Minda PA Unavailable Unavailable Feola, T Minda PA Unavailable Unavailable Feola, T Minda PA Unavailable Unavailable Feola, T Minda PA Unavailable Unavailable Feola, T Minda PA Unavailable Unavailable Feola, T Minda PA Unavailable Unavailable Feola, T Minda PA Unavailable Unavailable Feola, T Minda PA Unavailable Unavailable Feola, T Minda PA Unavailable Unavailable Feola, T Minda PA Unavailable Unavailable Feola, T Minda PA Unavailable Unavailable Feola, T Minda PA Unavailable Unavailable HEMINK, N YUNG Unavailable Unavailable Chudasama-Robert, A Sandy BLUE SPLIT TRIMMER Unavailable Unavailab le Chudasama-Robert, A Sandy BLUE SPLIT TRIMMER Unavailable Unavailab le Chudasama-Robert, A Sandy BLUE SPLIT TRIMMER Unavailable Unavailab le Chudasama-Robert, A Sandy BLUE SPLIT TRIMMER Unavailable Unavailab le Chudasama-Robert, A Sandy BLUE SPLIT TRIMMER Unavailable Unavailab le Chudasama-Robert, A Sandy BLUE SPLIT TRIMMER Unavailable Unavailab le Chudasama-Robert, A Sandy BLUE SPLIT TRIMMER Unavailable Unavailab le Chudasama-Robert, A Sandy BLUE SPLIT TRIMMER Unavailable Unavailab le Chudasama-Robert, A Sandy BLUE SPLIT TRIMMER Unavailable Unavailab le Chudasama-Robert, A Sandy BLUE SPLIT TRIMMER Unavailable Unavailab le Chudasama-Robert, A Sandy BLUE SPLIT TRIMMER Unavailable Unavailab le Chudasama-Robert, A Sandy BLUE SPLIT TRIMMER Unavailable Unavailab le Chudasama-Robert, A Sandy BLUE SPLIT TRIMMER Unavailable Unavailab le Chudasama-Robert, A Sandy BLUE SPLIT TRIMMER Unavailable Unavailab le Chudasama-Robert, A Sandy BLUE SPLIT TRIMMER Unavailable Unavailab le Chudasama-Robert, A Sandy BLUE SPLIT TRIMMER Unavailable Unavailab le Chudasama-Robert, A Sandy BLUE SPLIT TRIMMER Unavailable Unavailab le Chudasama-Robert, A Sandy BLUE SPLIT TRIMMER Unavailable Unavailab le Chudasama-Robert, A Sandy BLUE SPLIT TRIMMER Unavailable Unavailab le Chudasama-Robert, A Sandy BLUE SPLIT TRIMMER Unavailable Unavailab le Chudasama-Robert, A Sandy BLUE SPLIT TRIMMER Unavailable Unavailab le Chudasama-Robert, A Sandy BLUE SPLIT TRIMMER Unavailable Unavailab le Chudasama-Robert, A Sandy BLUE SPLIT TRIMMER Unavailable Unavailab le Chudasama-Robert, A Sandy BLUE SPLIT TRIMMER Unavailable Unavailab le Chudasama-Robert, A Sandy BLUE SPLIT TRIMMER Unavailable Unavailab le Chudasama-Robert, A Sandy BLUE SPLIT TRIMMER Unavailable Unavailab le Chudasama-Robert, A Sandy BLUE SPLIT TRIMMER Unavailable Unavailab le Chudasama-Robert, A Sandy BLUE SPLIT TRIMMER Unavailable Unavailab le MAESTRI, NAOMI SULLIVAN MS Unavailable Unavailable MAESTRI, NAOMI SULLIVAN MS Unavailable Unavailable MADDIE GONZALEZ Unavailable Unavailable Maestri, Naomi Sullivan Unavailable Maestri, Naomi Sullivan Unavailable LAW, R AFRICA DO Unavailable Unavailable LAW, R AFRICA DO Unavailable Unavailable LAW, R AFRICA DO Unavailable Unavailable LAW, R AFRICA DO Unavailable Unavailable LAW, R AFRICA DO Unavailable Unavailable LAW, R AFRICA DO Unavailable Unavailable LAW, R AFRICA DO Unavailable Unavailable LAW, R AFRICA DO Unavailable Unavailable LAW, R AFRICA DO Unavailable Unavailable LAW, R AFRICA DO Unavailable Unavailable LAW, R AFRICA DO Unavailable Unavailable LAW, R AFRICA DO Unavailable Unavailable LAW, R AFRICA DO Unavailable Unavailable LAW, R AFRICA DO Unavailable Unavailable LAW, R AFRICA DO Unavailable Unavailable LAW, R AFRICA DO Unavailable Unavailable LAW, R AFRICA DO Unavailable Unavailable LAW, R AFRICA DO Unavailable Unavailable LAW, R AFRICA DO Unavailable Unavailable LAW, R AFRICA DO Unavailable Unavailable LAW, R AFRICA DO Unavailable Unavailable LAW, R AFRICA DO Unavailable Unavailable LAW, R AFRICA DO Unavailable Unavailable LAW, R AFRICA DO Unavailable Unavailable LAW, R AFRICA DO Unavailable Unavailable LAW, R AFRICA DO Unavailable Unavailable LAW, R AFRICA DO Unavailable Unavailable LAW, R AFRICA DO Unavailable Unavailable LAW, R AFRICA DO Unavailable Unavailable LAW, R AFRICA DO Unavailable Unavailable Re-disclosure Warning The records that you are about to access may contain information from federally-assisted alcohol or drug abuse programs. If such information is present, then the following federally mandated warning applies: This information has been disclosed to you from records protected by federal confidentiality rules (42 CFR part 2). The federal rules prohibit you from making any further disclosure of this information unless further disclosure is expressly permitted by the written consent of the person to whom it pertains or as otherwise permitted by 42 CFR part 2. A general authorization for the release of medical or other information is NOT sufficient for this purpose. The Federal rules restrict any use of the information to criminally investigate or prosecute any alcohol or drug abuse patient.The records that you are about to access may contain highly sensitive health information, the redisclosure of which is protected by Article 27-F of the [facility] Public Health law. If you continue you may have access to information: Regarding HIV / AIDS; Provided by facilities licensed or operated by the [facility] Office of Mental Health; or Provided by the [facility] Office for People With Developmental Disabilities. If such information is present, then the following [facility] mandated warning applies: This information has been disclosed to you from confidential records which are protected by state law. State law prohibits you from making any further disclosure of this information without the specific written consent of the person to whom it pertains, or as otherwise permitted by law. Any unauthorized further disclosure in violation of state law may result in a fine or shelter sentence or both. A general authorization for the release of medical or other information is NOT sufficient authorization for further disc losure. Allergies and Adverse Reactions Type Description Substance Reaction Status Data Source(s ) Propensity to adverse reactions ACETAMINOPHEN Acetaminophen [facility] Family History Family Member Name Family Member Gender Family Member Status Date o f Status Description Data Source(s) Unknown Unknown Problem [facility] ([facility]) Encounters Encounter Providers Location Date Indications Data Source(s ) ( ESTOB) [facility] Est OB [address] [place] [address] 04/24/2021 12:00:00 AM EDT eCW1 ([facility]) Unknown [address] [facility] [address] 04/22/2021 12:00:00 AM EDT eCW1 ([facility]) ( [place]) [facility] Nurse [facility] [address] [place] [address] 04/22/2021 12:00:00 AM EDT eCW1 ([facility]) ( ESTOB) [facility] Est OB [address] [place] [address] 04/16/2021 12:00:00 AM EDT eCW1 ([facility]) (WC ESTOB) [facility] [address] [place] [address] 04/09/2021 12:00:00 AM EDT eCW1 ([facility]) (WC ESTOB) [facility] [address] [place] [address] 04/04/2021 12:00:00 AM EDT eCW1 ([facility]) Unknown [address] [facility] [address] 04/04/2021 12:00:00 AM EDT eCW1 ([facility]) <td><content [id number]">Procedure Only</content>
<content><content styleCode="xSecondary xLabel">Encounter Diagnosis:</content><content ID="_[id number]" styleCode="xSecondary">Suspected abnormality affecting management of mother, antepartum</content></content></td><td><content styleCode="xSecondary">01-Apr-2021 13:00 </content><content styleCode="xLabel xSecondary"> To </content><content styleCode="xSecondary">01-Apr-2021 12:42</content>
<content styleCode="xSecondary">[facility]</content>
</td><td></td>Procedure Only [facility] 04/01/2021 01:00:00 PM EDT - 04/01/2021 12:42:31 PM EDT Suspected abnormality affecting management of mother, antepartum [facility] ([facility]) Suspected abnormality affecting ma nagement of mother, antepartum <td><content ID="_[id number]">Office Visit</content>
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 She is accompanied by Nate Woodson, the father of the fetus.Her is followed by Dr. Law in [place] [facility] the [facility]. Her has been remarkable for an abnormal NIPT that showed basically "no result" and she was referred to the Center genetic counselor who said that an amniocentesis would be the only way to determine whether a chromosomal abnormality existed. Sulema declined the amniocentesis. 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 Her medications are only vitamins. Delivery is planned at [facility].</content></content>
<content><content styleCode="xSecondary xLabel">Encounter Diagnosis:</content><content ID="_[id number]" styleCode="xSecondary">Suspected abnormality affecting management of mother, antepartum</content><content styleCode="xSecondary">, </content><content [id number]" styleCode="xSecondary"> echocardiogram recommended</content><content styleCode="xSecondary">, </content> <content [id number]" styleCode="xSecondary">Persistent left SVC (superior vena cava)</content></content></td><td><content styleCode="xSecondary">01-Apr-2021 13:00 </content><content styleCode="xLabel xSecondary"> To </content><content styleCode="xSecondary">20-Apr-2021 15:05</content>
<content styleCode="xSecondary">[facility]</content>
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 She is accompanied by Nate Woodson, the father of the fetus.Her is followed by Dr. Law in [place] [facility] the [facility]. Her has been remarkable for an abnormal NIPT that showed basically "no result" and she was referred to the Center genetic counselor who said that an amniocentesis would be the only way to determine whether a chromosomal abnormality existed. Sulema declined the amniocentesis. 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 Her medications are only vitamins. 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 She is accompanied by Nate Woodson, the father of the fetus.Her is followed by Dr. Law in [place] [facility]. Her has been remarkable for an abnormal NIPT that showed basically "no result" and she was referred to the [facility] genetic counselor who said that an amniocentesis would be the only way to determine whether a chromosomal abnormality existed. Sulema declined the amniocentesis. 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 Her medications are only vitamins. Delivery is planned at [facility]. Persistent left SVC (superior vena cava) echocardiogram recommended Suspected abnormality affecting ma evin of mother, antepartum <td><content [id number]">Review</content>
</td><td><conten t styleCode="xSecondary">01-Apr-2021 12:42 </content>
<content styleCode="xSecondary">[facility]</content>
</td><td></td>Review [facility] 04/01/2021 12:42:35 PM EDT [facility] ([facility]) ( ESTOB) [facility] Est OB [address] [place] [address] 03/21/2021 12:00:00 AM EDT eCW1 ([facility]) ( ESTOB) [facility] Est OB [address] [place] [address] 03/06/2021 12:00:00 AM EDT eCW1 ([facility]) Unknown [address] [facility] [address] 02/28/2021 12:00:00 AM EDT eCW1 ([facility]) Outpatient Attender: Minda SAMUEL 021 08:41:48 AM EDT - 02/20/2021 09:43:12 AM EDT [facility] ([facility] ) [place] [address] [facility] [address] 02/13/2021 12:00:00 AM EDT eCW1 ([facility]) ( ESTOB) enter Est OB [address] [place] [address] 02/13/2021 12:00:00 AM EDT eCW1 ([facility]) Outpatient [address] [facility] [address] 01/31/2021 12:00:00 AM EDT eCW1 ([facility]) (WC ESTOB) enter Est OB [address] [place] [address] 01/16/2021 12:00:00 AM EDT eCW1 ([facility]) Outpatient Attender: Laurie Rivera er: LAURIE FRIED MSReferrer: AFRICA LAW DO [id number] 01/01/2021 12:00:00 AM EDT - 01/01/2021 11:45:38 AM [facility] Outpatient Attender: YUNG ANNA 01/01/2021 12:00:00 A M [facility] ( ESTOB) [facility] Est OB [address] [place] [address] 12/19/2020 12:00:00 AM EDT eCW1 ([facility]) Outpatient Attender: LAURIE FRIED MSReferrer: AFRICA Helms DO [id number] 12/05/2020 12:00:00 AM EDT - 12/05/2020 12:10:07 PM EDT Encounter for procreative genetic counseling [facility] Encounter for procreative genetic counse frankie Outpatient Attender: MADDIE GONZALEZReferrer: AFRICA LEON DO 12/05/2020 12:00:00 AM [facility] Outpatient Referrer: AFRICA LAW DO 12/05/2020 12:00:00 AM [facility] Unknown [address] [facility] [address] 11/28/2020 12:00:00 AM EDT eCW1 ([facility]) (WC ESTOB) [facility] [address] [place] [address] 11/21/2020 12:00:00 AM EDT eCW1 ([facility]) [place] [address] [facility] [address] 10/30/2020 12:00:00 AM EDT eCW1 ([facility]) (WC ESTOB) [facility] [address] [place] [address] 10/24/2020 12:00:00 AM EDT eCW1 ([facility]) ( ESTOB) [facility] [address] [place] [address] 09/26/2020 12:00:00 AM EDT eCW1 ([facility]) [place] [address] [facility] [address] 09/10/2020 12:00:00 AM EST eCW1 ([facility]) [place] [address] [facility] [address] 09/10/2020 12:00:00 AM EST eCW1 ([facility]) [place] [address] [facility] [address] 09/09/2020 12:00:00 AM EST eCW1 ([facility]) [place] [address] [facility] [address] 09/09/2020 12:00:00 AM EST eCW1 ([facility]) [place] [address] [facility] [address] 06/19/2020 12:00:00 AM EST eCW1 ([facility]) Outpatient [address] [facility] [place] [address] 06/17/2020 12:00:00 AM EST eCW1 ([facility]) Outpatient Attender: Sandy BADILLO 0 01:30:00 PM EST [facility] Outpatient [address] [facility] [address] [place] [address] 05/29/2020 12:00:00 AM EST eCW1 ([facility]) [facility] 0 02:49:00 PM EDT [facility] Outpatient Attender: Sandy EspitiaTreva BLUE SPLIT TRIMMER 0 03:30:00 PM EDT [facility] Outpatient Attender: Lisa Patel [facility] 09/29/2019 01:12:0 0 PM EDT [facility] Immunizations Vaccine Date Status Description Data Source(s) Tdap 03/06/2021 11:50:00 AM EDT completed [facility] Tdap 03/06/2021 11:50:00 AM EDT completed e [facility] Tdap 03/06/2021 11:50:00 AM EDT completed e CW[facility]) Tdap 03/06/2021 11:50:00 AM EDT completed e CW[facility]) Tdap 03/06/2021 11:50:00 AM EDT completed e CW1 ([facility]) Tdap 03/06/2021 11:50:00 AM EDT completed e CW1 [facility]) Tdap 03/06/2021 11:50:00 AM EDT completed e CW1 [facility]) Tdap 03/06/2021 11:50:00 AM EDT completed e CW1 [facility]) Tdap 03/06/2021 11:50:00 AM EDT completed e CW1 ([facility]) Medications Medication Brand Name Start Date Product Form Dose Route Admi nistrative Instructions Pharmacy Instructions Status Indications Reaction Description Data Source(s) 4 mg 10/25/2020 12:00:00 AM EDT tablet 30 TAKE ONE TABLET BY MOUTH EVERY 6 HOURS NEEDED TAKE ONE TABLET BY MOUTH EVERY 6 HOURS NEEDED SOLD: 10/26/2020 [facility] Ondansetron 4 MG Oral Tablet Ondansetron HCl 4 MG Ondansetro n HCl 4 MG 10/24/2020 12:00:00 AM EDT 1.0 {tablet} suspende d Ondansetron HCl 4 MG [facility] Ondansetron 4 MG Oral Tablet Ondansetron HCl 4 MG Ondansetro n HCl 4 MG 10/24/2020 12:00:00 AM EDT 1.0 {tablet} active Ondansetron HCl 4 MG [facility]) Ondansetron 4 MG Oral Tablet Ondansetron HCl 4 MG Ondansetro n HCl 4 MG 10/24/2020 12:00:00 AM EDT 1.0 {tablet} suspende d Ondansetron HCl 4 MG [facility]CW1 [facility]) Ondansetron 4 MG Oral Tablet Ondansetron HCl 4 MG Ondansetro n HCl 4 MG 10/24/2020 12:00:00 AM EDT 1.0 {tablet} suspende d Ondansetron HCl 4 MG eCW1 ([facility]) Ondansetron 4 MG Oral Tablet Ondansetron HCl 4 MG Ondansetro n HCl 4 MG 10/24/2020 12:00:00 AM EDT 1.0 {tablet} suspende d Ondansetron HCl 4 MG eCW1 ([facility]) Ondansetron 4 MG Oral Tablet Ondansetron HCl 4 MG Ondansetro n HCl 4 MG 10/24/2020 12:00:00 AM EDT 1.0 {tablet} suspende d Ondansetron HCl 4 MG eCW1 ([facility]) Ondansetron 4 MG Oral Tablet Ondansetron HCl 4 MG Ondansetro n HCl 4 MG 10/24/2020 12:00:00 AM EDT 1.0 {tablet} suspende d Ondansetron HCl 4 MG eCW1 ([facility]) Ondansetron 4 MG Oral Tablet Ondansetron HCl 4 MG Ondansetro n HCl 4 MG 10/24/2020 12:00:00 AM EDT 1.0 {tablet} active Ondansetron HCl 4 MG eCW1 ([facility]) Ondansetron 4 MG Oral Tablet Ondansetron HCl 4 MG Ondansetro n HCl 4 MG 10/24/2020 12:00:00 AM EDT 1.0 {tablet} suspende d Ondansetron HCl 4 MG eCW1 ([facility]) Ondansetron 4 MG Oral Tablet Ondansetron HCl 4 MG Ondansetro n HCl 4 MG 10/24/2020 12:00:00 AM EDT 1.0 {tablet} active Ondansetron HCl 4 MG eCW1 ([facility]) Ondansetron 4 MG Oral Tablet Ondansetron HCl 4 MG Ondansetro n HCl 4 MG 10/24/2020 12:00:00 AM EDT 1.0 {tablet} suspende d Ondansetron HCl 4 MG eCW1 ([facility]) Ondansetron 4 MG Oral Tablet Ondansetron HCl 4 MG Ondansetro n HCl 4 MG 10/24/2020 12:00:00 AM EDT 1.0 {tablet} suspende d Ondansetron HCl 4 MG eCW1 ([facility]) Ondansetron 4 MG Oral Tablet Ondansetron HCl 4 MG Ondansetro n HCl 4 MG 10/24/2020 12:00:00 AM EDT 1.0 {tablet} suspende d Ondansetron HCl 4 MG eCW1 ([facility]) Ondansetron 4 MG Oral Tablet Ondansetron HCl 4 MG Ondansetro n HCl 4 MG 10/24/2020 12:00:00 AM EDT 1.0 {tablet} suspende d Ondansetron HCl 4 MG eCW1 ([facility]) Ondansetron 4 MG Oral Tablet Ondansetron HCl 4 MG Ondansetro n HCl 4 MG 10/24/2020 12:00:00 AM EDT 1.0 {tablet} suspende d Ondansetron HCl 4 MG eCW1 ([facility]) Ondansetron 4 MG Oral Tablet Ondansetron HCl 4 MG Ondansetro n HCl 4 MG 10/24/2020 12:00:00 AM EDT 1.0 {tablet} active Ondansetron HCl 4 MG eCW1 ([facility]) Ondansetron 4 MG Oral Tablet Ondansetron HCl 4 MG Ondansetro n HCl 4 MG 10/24/2020 12:00:00 AM EDT 1.0 {tablet} suspende d Ondansetron HCl 4 MG eCW1 ([facility]) Ondansetron 4 MG Oral Tablet Ondansetron HCl 4 MG Ondansetro n HCl 4 MG 10/24/2020 12:00:00 AM EDT 1.0 {tablet} active Ondansetron HCl 4 MG [facility]CW1 ([facility]) Ondansetron 4 MG Oral Tablet Ondansetron HCl 4 MG Ondansetro n HCl 4 MG 10/24/2020 12:00:00 AM EDT 1.0 {tablet} active Ondansetron HCl 4 MG [facility]CW1 ([facility]) Insurance Providers Payer name Policy type / Coverage type Policy ID Covered libertarian ID Covered libertarian's relationship to dobbins Policy Dobbins Plan Information GHI U [id number] Child [id number] COMMERCIAL GENERIC U [id number] Self [id number] BCBS GENERIC C [id number] Child [id number] RPR- Needs Payer Match [id number] Parent [id number] [place] Blue [employer] and Blue Shield - [place] Blue Cross/B lue Shield [id number] Parent [id number] BLUE CARD C [id number] Child [id number] BLUE CARD C [id number] Child [id number] SELF-PAY UNAVAILABLE S UNAVAILA BLE [place] 302/307 [id number] FA2 [id number] MEDICAID [id number] S [id number] [place] [id number] CHILD [id number] GHI [id number] S [id number] ANSI-Commercial [id number] ANSI-Other [id number] [facility] ([facility]) [id number] Family Dependent [id number] [facility] ([facility]) [id number] Family Dependent [id number] [facility] ([facility]) [id number] Family Dependent [id number] [place] 306/806 [id number] FA2 [id number] [facility] ([facility]) [id number] Family Dependent [id number] [place] 306/806 [id number] FA2 [id number] [facility] ([facility]) [id number] Family Dependent [id number] i/[facility] Commercial [id number] Family Dependent GHI INSURANCE -O/P [id number] 19 [id number] [facility] [id number] SP [id number] [facility] INSURANCE [id number] FA2 [id number] [facility] [id number] SP [id number] GHI O [id number] P [id number] [place] P[place] 302/307 [id number] DA2 [id number] BLUE CROSS [id number] HUS [id number] EX[place]LL[place] BCBS B [id number] O PUT [id number] [place] 210/710 [id number] FA2 [id number] [place] BCBS [place] [id number] CHILD [id number] BCBS [place] PPO 302/307 [id number] FA2 [id number] BCBS/Blue Card Commercial [id number] Dependent [id number] Problems, Conditions, and Diagnoses Code Display Name Description Problem Type Effective Dates Data Source(s) O28.0 Abnormal hematological finding on antena mark screening of mother Abnormal hematological finding on screening of mother Diagnosis 12/11/2020 01:14:09 PM EDT [facility] Z31.5 Encounter for procreative genetic counse ling Encounter for procreative genetic counseling Diagnosis 12/05/2020 09:42:57 AM EDT [facility] Z00.00 Encounter for general adult medical examination without abnormal findings ENCNTR FOR GENERAL ADULT MEDICAL EXAM W/O ABNORMAL FINDINGS Diagnosis 05/29/2020 01:30:00 PM [facility] O28.5 Abnormal findings on screening of mother Abnormal chromosomal and genetic finding on screening mother Problem 10/0 12/2020 12:00:00 AM EDT [facility] Z3A.11 [id number] weeks gestation of Problem 10/23/2020 12:00:00 AM EDT [facility]) Z34.80 care Supervision of other normal P lamontm 09/26/2020 12:00:00 AM EDT [facility]CW[facility]) Surgeries/Procedures Procedure Description Date Indications Data Source(s) INITL INPATIENT CONSULT NEW/ESTAB PT 40 MIN 04/01/2021 01:00:00 PM EDT - 04/20/2021 03:05:05 PM EDT [facility] ([facility]) DOPPLER ECHO SPECTRAL DISPLAY COMPLETE <td colsp an="2"> ECHO EXAM OF HEART, DOPPLER COMPLETE (54164)</td><td> Status: Completed 01-Apr-2021 </td> 04/01/2021 12:50:00 PM EDT - 04/01/2021 12:50:00 PM EDT [facility] ([facility]) TDAP VACCINE 7/> YR IM 03/06/2021 12:00:00 AM EDT [facility] Results ID Date Data Source TOTAL PROTEIN,RANDOM URINE 04/22/2021 12:00:00 AM EDT [facility] ( [facility] Name Value Range Interpretation Code Description Data Noris rce(s) Supporting Document(s) 9.9 0.0-12.0 TOTAL PROTEIN,RANDOM URIN E eCW1 ([facility]) ID Date Data Source CREATININE,RANDOM URINE 04/22/2021 12:00:00 AM EDT eCW1 ([facility]) Name Value Range Interpretation Code Description Data Noris rce(s) Supporting Document(s) 46.1 CREATININE,RANDOM URINE eCW1 ( [facility]) ID Date Data Source Pre Eclampsia Profile 04/22/2021 12:00:00 AM EDT eCW1 ([facility]) Name Value Range Interpretation Code Description Data Noris rce(s) Supporting Document(s) 0.62 0.55-1.30 CREATININE FOR GFR eCW1 ([facility]) > 60.0 >60 GLOMERULAR FILTRATION RATE eCW 1 ([facility]) 15 7-37 AST/SGOT eCW1 ([facility]) 202 84-246 LDH LACTATE DEHYDROGENASE eCW1 ([facility]) 0.3 0.2-1.0 BILIRUBIN,TOTAL eCW1 ([facility]) 13 12-78 ALT/SGPT eCW1 ([facility]) 3.8 2.6-6.0 URIC ACID eCW1 ([facility]) ID Date Data Source CBC - Complete Blood Count 04/22/2021 12:00:00 AM EDT [facility]CW[facility] ( [facility]) Name Value Range Interpretation Code Description Data Noris rce(s) Supporting Document(s) 4.47 4.00-5.40 RED BLOOD COUNT eCW1 ([facility]) 9.7 4.0-10.0 WHITE BLOOD COUNT eCW1 ([facility]) 12.7 12.0-15.5 HEMOGLOBIN eCW1 ([facility]) 39.4 36.0-47.0 HEMATOCRIT eCW1 ([facility]) 88.1 80.0-96.0 MEAN CORPUSCULAR VOLUME e CW1 ([facility]) 32.2 32.0-36.5 MEAN CORPUSCULAR HGB CONC eCW1 ([facility]) 28.4 27.0-33.0 MEAN CORPUSCULAR HEMOGLOB IN eCW1 ([facility]) 12.9 11.5-14.5 RED CELL DISTRIBUTION WID TH eCW1 ([facility]) 210 150-450 PLATELET COUNT, AUTOMATED eCW1 ([facility]) ID Date Data Source GROUP B STREP CULTURE 04/04/2021 12:00:00 AM EDT eCW1 ([facility]) Name Value Range Interpretation Code Description Data Noris rce(s) Supporting Document(s) GROUP B STREP CULTURE eCW1 ([facility]) ID Date Data Source WWBC OBS FOLLOW UP OR REPEAT 04/02/2021 12:00:00 AM EDT [facility]CW1 [facility] Name Value Range Interpretation Code Description Data Noris rce(s) Supporting Document(s) WWBC OBS FOLLOW UP OR REPEAT e CW1 ([facility]) ID Date Data Source [id number] 01/01/2021 03:17:21 PM EDT [facility] Name Value Range Interpretation Code Description Data Noris rce(s) Supporting Document(s) Progress Note [facility] QLOQRi6uDtPOHnBf97/QXXnkYICkn5AbSDooPHz2EIzaSDGuV8UvRPC0oE1bDAV0HOkMSmSyUqNhRaSi lbm [file] AgICAgICAgICAgICAgICAgICAgICAgICAgICAgICAg ICAgICAgICAgICAgICAgICAgICAgICAgICAgICAgICAgICAgICAgICAgICANCiAgICAgICAgICAgICAg ICAgICAgICAgICAgICAgICAgICAgICAgICAgICAgICAgICAgICAgICAgICAgICAgICAgICAgICAgICAg ICAgICAgICAgICAgICAgICAgICAgICAgICANCiAgIC AgICAgICAgICAgICAgICAgICAgICAgICAgICAgICAgICAgICAgICAgICAgICAgICAgICAgICAgICAgIC AgICAgICAgICAgICAgICAgICAgICAgICAgICAgICAgICAgICANCiAgICAgICAgICAgICAgICAgICAgIC AgICAgICAgICAgICAgICAgICAgICAgICAgICAgICAg ICAgICAgICAgICAgICAgICAgICAgICAgICAgICAgICAgICAgICAgICAgICAgICANCiAgICAgICAgICAg ICAgICAgICAgICAgICAgICAgICAgICAgICAgICAgICAgICAgICAgICAgICAgICAgICAgICAgICAgICAg ICAgICAgICAgICAgICAgICAgICAgICAgICAgICANCi AgICAgICAgICAgICAgICAgICAgICAgICAgICAgICAgICAgICAgICAgICAgICAgICAgICAgICAgICAgIC AgICAgICAgICAgICAgICAgICAgICAgICAgICAgICAgICAgICAgICANCiAgICAgICAgICAgICAgICAgIC AgICAgICAgICAgICAgICAgICAgICAgICAgICAgICAg ICAgICAgICAgICAgICAgICAgICAgICAgICAgICAgICAgICAgICAgICAgICAgICAgICANCiAgICAgICAg ICAgICAgICAgICAgICAgICAgICAgICAgICAgICAgICAgICAgICAgICAgICAgICAgICAgICAgICAgICAg ICAgICAgICAgICAgICAgICAgICAgICAgICAgICAgIC ANCiAgICAgICAgICAgICAgICAgICAgICAgICAgICAgICAgICAgICAgICAgICAgICAgICAgICAgICAgIC AgICAgICAgICAgICAgICAgICAgICAgICAgICAgICAgICAgICAgICAgICANCiAgICAgICAgICAgICAgIC AgICAgICAgICAgICAgICAgICAgICAgICAgICAgICAg ICAgICAgICAgICAgICAgICAgICAgICAgICAgICAgICAgICAgICAgICAgICAgICAgICAgICANCjw/eHBh B1enuIGcxyP8S1ljNr5SWe6QLI2no0ItUYXnDCpqdzYeCdyWUtUaPNFsNxhQLbl1BSopYB9PvHCqI8Rx C3VdQObzOS9JJWXnGACpvPReWSEjTJZzWdK6BTEyQP qdLN1IkEWyRHtgXOStTKBaNN6YNVRlA754ykQgHH4PNh1MZuNtYC9vea8QPLumSYUrJzqTPdl3YQngOA 6HvRWchFRvLDHgCJSWPeVfY5brx3JdZdCiEUZWILayAU1Js3YxqZMqFFi+Ec5UYP4oi4XoHQjoJWQbUF 4uzq2ZNIhMHcRfP5MmqDcaQPKia1npTKFoLZ4oyUQl JOQ4ML0wocmsKr9sFUUfs1BoaWsyWEKfDVMtKf0iXq5nJTGwFEUaUdUvARNUSB2WWWJwDFFkaEMxQMDi OXORBG3TEPmnPDJ6SQLkspQnjYYxQUsgAH9ZDWJbwbEoVQyiWLVVPEq+Wr4TTK4us7AiDYbjEYBlPQ9s jn8NPSdKUxRpR6G3aHLtA4Y5DNutVq3JSKSoIVJlUL sgAYJAHLmiSS0BUY9hvpS2EX7KmFJsBKAmWECvgJQbMTk7E48koBEdPBqwJL1PFLN+Asad+Aq1BVAWsSJ BaWAZtItSbJUPZWvXhJ9MfB0SNh5HvW5GvLL61uOddbeJhOUeoZZ3TDY8lECAsAPNOJV2QjZYynE4bga FbFQCkJRWIZvNiL43byBDmWZClAZM9DFSnIc7FAHNk K5DfpqCnlAzceiEbBXNfJERWRJ7RYNnzhpQncOVezQmnAD43bJjcQZ9GWn5DXqZdMG1sgc9TdBVmUe7F AOHkSw6YWFCjLVNoSLZhLVW8DCRdGiMwDNnbYLXmBMNrUVR5DHOuXJIuUR8ZAaWaHLSyMSn9BMRpZAKg YAVsip5PHXHtTWNiPPolKPXkLWBcYINzWWxsYRQbUC GiGWB6SJNaIXGnQA9YDdOvRHMyXHQ6TJedHFNyHYKxsv2MQJDtWXUrNAUjAlUyFVAvGUYdWVxwBSOsPL X8XHohQASaKCGbSN6ZQaVwWBMtCLNeWjfqASDdMFJtvk4QPTAhEWMkZWX2YPJtCIUeNZGtDWdgGLDoAN B3OvO7HWQnBIBjCR2CGgBoNFItYUL4PNudFFGyRMZt ar6RCOScOKDiLkA4KABvTILaLUVdRQnhRVVoEIC0PTHhXJJdPOUhJA6IUiJoGRCbMOjpHfRsXHJaZOHt lm1OMJSfEXFgZSY0MBRoADTfACTmSKehELCmNPO0ROI4UHTbYGIvGU9HVfNqASCpTNi1XgRxHCMzUXXf fp3KBYMjZKAdPDY0EPTyLTRvGBRwPQzeZBFsAUOuHj u5AVSbHGWdST4NCiJcMCOlWnC7GcXrTRMlCZKowr0WSFPuKFEhRZSkNGCfHHWxGYUeZLe6diJegYAjVZ u9JB5GV3BvgvQtPlBKSa7Wu502KJRvQZArJx9VY4mkKr0dINEeMPKEXx6RQNg8ZQttL2ToSASvK6F3VQ Z2BAv2JQUjQbt1V9M8OPP1CXT+SOk9HRFnRXPsMZBj Mao8UYlaWpG1UJAfYBR7Ccy8SbklBE4vSOGJZi1+VYxjpKGwdYfvCAPAKqFlXhN8FPmuXLQXJk9G ID Date Data Source [id number] 12/11/2020 01:17:33 PM EDT [facility] Name Value Range Interpretation Code Description Data Noris rce(s) Supporting Document(s) Progress Note [facility] OXXOJc5bDjYOMzCa07/AMPswRJIss3RaPUabQTo8SHgoUUUgX9SqQXK6zN7tAAK6DEfSLhRmTcOaZfZn lbm [file] ICAgICAgICAgICAgICAgICAgICAgICAgICAgICAgIC AgICAgICAgICAgICAgICAgICAgICAgICAgICAgICAgICAgICAgICAgICAgICAgICAgICAgICAgICANCi AgICAgICAgICAgICAgICAgICAgICAgICAgICAgICAgICAgICAgICAgICAgICAgICAgICAgICAgICAgIC AgICAgICAgICAgICAgICAgICAgICAgICAgICAgICAg ICAgICAgICANCiAgICAgICAgICAgICAgICAgICAgICAgICAgICAgICAgICAgICAgICAgICAgICAgICAg ICAgICAgICAgICAgICAgICAgICAgICAgICAgICAgICAgICAgICAgICAgICAgICAgICANCiAgICAgICAg ICAgICAgICAgICAgICAgICAgICAgICAgICAgICAgIC AgICAgICAgICAgICAgICAgICAgICAgICAgICAgICAgICAgICAgICAgICAgICAgICAgICAgICAgICAgIC ANCiAgICAgICAgICAgICAgICAgICAgICAgICAgICAgICAgICAgICAgICAgICAgICAgICAgICAgICAgIC AgICAgICAgICAgICAgICAgICAgICAgICAgICAgICAg ICAgICAgICAgICANCiAgICAgICAgICAgICAgICAgICAgICAgICAgICAgICAgICAgICAgICAgICAgICAg ICAgICAgICAgICAgICAgICAgICAgICAgICAgICAgICAgICAgICAgICAgICAgICAgICAgICANCiAgICAg ICAgICAgICAgICAgICAgICAgICAgICAgICAgICAgIC AgICAgICAgICAgICAgICAgICAgICAgICAgICAgICAgICAgICAgICAgICAgICAgICAgICAgICAgICAgIC AgICANCiAgICAgICAgICAgICAgICAgICAgICAgICAgICAgICAgICAgICAgICAgICAgICAgICAgICAgIC AgICAgICAgICAgICAgICAgICAgICAgICAgICAgICAg ICAgICAgICAgICAgICANCiAgICAgICAgICAgICAgICAgICAgICAgICAgICAgICAgICAgICAgICAgICAg ICAgICAgICAgICAgICAgICAgICAgICAgICAgICAgICAgICAgICAgICAgICAgICAgICAgICAgICANCiAg ICAgICAgICAgICAgICAgICAgICAgICAgICAgICAgIC AgICAgICAgICAgICAgICAgICAgICAgICAgICAgICAgICAgICAgICAgICAgICAgICAgICAgICAgICAgIC AgICAgICANCjw/jYKkN3vihOKppmB4U1gqMh2EHk8UYJ8mp4NfTACcOZohaxNcMmeDZaLzAESyGndYUl y0MRizBD3GnALeP1BpZ9LvMRvtNE6UMTKdBGBawCLo GNIpIJXuDkX6AEOcMNpnUH5PdWGuTMfpLZCtIKEsUrUgNMVxWVKaKAHqQX9WSIBwA506lrEzNh6GAj9H XcEhUH9hdg6CYyNeFDIsMoiJXed0DCbiGF8TmUUkxTZsDHVsWDHMJcYwI9zte8PpJqQbCALCBUlbNU1H x2ZddHNoBQn+Km4ZSW5bq0KnVZkfWZXiSR7eyp5NQC nTJlAmW2BblBvrCZEsh0tlSAZoDO2zvHAuVPA2SS1nooxzQh5mTNEjo5QwoKogGTZaNULhDS2nAv2fMW RxEDGbFuSlCDVZAH2IXAPkHOBmePJgFSCeUIMKLZ3NXLdsSQY8PPJuywNybUGzMMhrOX7WTIChsdYlCg MgMCBSDQo+Sp4JID7gz2EeNEuhSQMwQE9flo6CYYkM RdAcX0P3lHBzF9L7ARrzUt9VXNUvONJzJgZgGUGMHPeeIR8RRF8mbaC4SW1BcLOeAUFtGEMnaIZgQQi4 L94ojXXnCPatMB0KPPV+Asad+Ra5JQFFfSURwUTLoLeVfQLXPJyWuE4VkB7HAf9UrB2ArOB65mFwwyiMc NCufEI6YBS1rJZGiYUQEFL4VqVHybS6pkoDqCwXqMJ PMTmIaA65hfGUzWBCmLKJyOVBsQq3XIGXfX9SozjBecRomdsPbQZDnPLFFRM8PSVlddzSqxEYuiGybJD 08eIenEM4INz6JUzZwYP3poc6XvKAgMr5TCDTeRs1CHJYvKKTpXUEyXVB8WDBjAwXpECbpKSOyLLTsBC X0IBYfDTQkDT8HGzNkCHPuHhP0XxIgFPRfFRGfvn7N TJRjFMPlDbZ3XsIvQBDxYNYkSHenNQFnGQGvOFB7GSYyDPAzTV0XFeVuPVMdSMC4JkOaEQBnPIBeok8M RWSyVGIhPjTsOSWmCIYqKTWqIMurEGRdPTN8JLE6DDZkAWHtQN2MMzOdBVBgMZCyNYGcLAHvNSFzap7O CITkHUBgDrU4MbJgPKKvLERnHOpsMPXvWZO9APd3FO YtBMBbMP7LHwAkNHRnMZs3EKJhXHBhJZGixy2IHBTqGPZjWRK1QkLdFEZbRZVbKCpdOWGlENM0TlD4GO AvFFBzPH0DIeDlKDJhOZmkFWMrVAQfVCIrry6EJYNiUHAhFUM3AdIuDFWcAHAtMIqoDXPvAMD4QXm8AA EdYZOjPG6WQgMwIDWeLpK5CEWbEPXeOFOopw0ANDFw ZUBdXVV5TxVwJGHwRTZaIJzdZLBfHMBeOHR9QYXmHUCpZY1GOcSmQGCdOgP2LRHpXQAzZUPaow9WYCOs QHFhLLi9LGBmIRWpZUQmXMjuHHZsIELoPnKmPAWzBBTtHJ9QDfFuSRRnStM5MYAnNXZtKPXken3EMGVh CREhXnj7MxXgNZGnPBWgPOoqMZNrRDBuCAOpBMBwUL UuOB9OClAvMBpcATEMPvf9ICucH4l9RMMgSy2LL8Urz6AkLbXxWWREOIzxBJ6aauEmXYIcGt5OW0xLZa adEuFpIGTmRUZ2SRvrIGA7RNa4ZjF9HGV5WjC0NpnzPb9nQYA4TsVvVmJjToqwTSV0VZc0XVuoKcm5DC DkOTjdHAAlXaIiGE8NVx3XEuB2SXS8mMIyWd7AFnAjShaAOkEaUF2DJSz= ID Date Data Source [id number] 04/22/2020 03:00:00 PM EDT [facility] Name Value Range Interpretation Code Description Data Noris rce(s) Supporting Document(s) SARS coronavirus 2 RNA [facility] This lab was ordered by [facility] and reported by [facility]. Procedure Social History Code Duration Value Status Description Data Source(s ) Smoking 04/21/2021 12:00:00 AM EDT Never Smoker completed Never S moker [facility] Smoking 04/21/2021 12:00:00 AM EDT Never Smoker completed Never S moker eCW1 ([facility]) Smoking 04/21/2021 12:00:00 AM EDT Never Smoker completed Never S moker eCW1 ([facility]) Smoking 04/16/2021 12:00:00 AM EDT Never Smoker completed Never S moker eCW1 ([facility]) Smoking 04/16/2021 12:00:00 AM EDT Never Smoker completed Never S moker eCW1 ([facility]) Smoking 04/16/2021 12:00:00 AM EDT Never Smoker completed Never S moker eCW1 ([facility]) Smoking 03/27/2021 12:00:00 AM EDT Never Smoker completed Never S moker eCW1 ([facility]) Smoking 03/27/2021 12:00:00 AM EDT Never Smoker completed Never S moker eCW1 ([facility]) Smoking 03/06/2021 12:00:00 AM EDT Never Smoker completed Never S moker eCW1 ([facility]) Smoking 02/13/2021 12:00:00 AM EDT Never Smoker completed Never S moker eCW1 ([facility]) Smoking 02/13/2021 12:00:00 AM EDT Never Smoker completed Never S moker eCW1 ([facility]) Smoking 02/13/2021 12:00:00 AM EDT Never Smoker completed Never S moker eCW1 ([facility]) Smoking 01/31/2021 12:00:00 AM EDT Never Smoker completed Never S moker eCW1 ([facility]) Smoking 01/16/2021 12:00:00 AM EDT Never Smoker completed Never S moker eCW1 ([facility]) Smoking 01/08/2021 12:00:00 AM EDT Never Smoker completed Never S moker eCW1 ([facility]) Smoking 12/17/2020 12:00:00 AM EDT Never Smoker completed Never S moker eCW1 ([facility]) Smoking 11/18/2020 12:00:00 AM EDT Never Smoker completed Never S moker eCW1 ([facility]) Smoking 10/22/2020 12:00:00 AM EDT Never Smoker completed Never S moker eCW1 ([facility]) Smoking 10/22/2020 12:00:00 AM EDT Never Smoker completed Never S moker eCW1 ([facility]) Smoking 09/26/2020 12:00:00 AM EDT Never Smoker completed Never S moker eCW1 ([facility]) Smoking 06/17/2020 12:00:00 AM EST Never Smoker completed Never S moker eCW1 ([facility]) Smoking 06/17/2020 12:00:00 AM EST Never Smoker completed Never S moker eCW1 ([facility]) Smoking 06/17/2020 12:00:00 AM EST Never Smoker completed Never S moker eCW1 ([facility]) Smoking 06/17/2020 12:00:00 AM EST Never Smoker completed Never S moker eCW1 ([facility]) Smoking 06/17/2020 12:00:00 AM EST Never Smoker completed Never S moker eCW1 ([facility]) Smoking 06/17/2020 12:00:00 AM EST Never Smoker completed Never S moker eCW1 ([facility]) Smoking 05/29/2020 12:00:00 AM EST Never Smoker completed Never S moker [facility] Vital Signs ID Date Data Source UNK Name Value Range Interpretation Code Description Data Source(s) Diastolic blood pressure 78 mm[Hg] 78 mm[Hg] [facility]CW[facility] Body weight 182.6 [lb_av] 182.6 [lb_av] eCW1 ([facility]) Body weight 82.83 kg 82.83 kg W1 ([facility]) Body height 66 [in_i] 66 [in_i] W1 ([facility]) Body mass index (BMI) [Ratio] 29.472 kg/m2 29.4 72 kg/m2 W1 ([facility]) Systolic blood pressure 122 mm[Hg] 122 mm[Hg] e CW1 ([facility]) Body weight 178.6 [lb_av] 178.6 [lb_av] eCW1 ([facility]) Body weight 81.01 kg 81.01 kg eCW1 ([facility]) Body height 66 [in_i] 66 [in_i] eCW1 ([facility]) Body mass index (BMI) [Ratio] 28.827 kg/m2 28.8 27 kg/m2 eCW1 [facility]) Systolic blood pressure 120 mm[Hg] 120 mm[Hg] e CW1 ([facility]) Diastolic blood pressure 80 mm[Hg] 80 mm[Hg] eCW1 [facility]) Body weight 177.2 [lb_av] 177.2 [lb_av] eCW1 ([facility]) Body weight 80.38 kg 80.38 kg eCW1 ([facility]) Body height 66 [in_i] 66 [in_i] eCW1 ([facility]) Body mass index (BMI) [Ratio] 28.6 kg/m2 28.6 k g/m2 eCW1 ([facility]) Systolic blood pressure 132 mm[Hg] 132 mm[Hg] e CW1 ([facility]) Diastolic blood pressure 80 mm[Hg] 80 mm[Hg] eCW1 [facility]) Body weight 176.4 [lb_av] 176.4 [lb_av] eCW1 ([facility]) Body height 66 [in_i] 66 [in_i] eCW1 ([facility]) Body mass index (BMI) [Ratio] 28.47 kg/m2 28.47 kg/m2 eCW1 ([facility]) Systolic blood pressure 152 mm[Hg] 152 mm[Hg] e CW1 ([facility]) Diastolic blood pressure 80 mm[Hg] 80 mm[Hg] eCW1 ([facility]) Body weight 175.2 [lb_av] 175.2 [lb_av] eCW1 ([facility]) Body weight 79.47 kg 79.47 kg eCW1 ([facility]) Body height 66 [in_i] 66 [in_i] eCW1 ([facility]) Body mass index (BMI) [Ratio] 28.278 kg/m2 28.2 78 kg/m2 eCW1 ([facility]) Systolic blood pressure 120 mm[Hg] 120 mm[Hg] e CW1 ([facility]) Diastolic blood pressure 70 mm[Hg] 70 mm[Hg] eCW1 ([facility]) Body weight 174 [lb_av] 174 [lb_av] eCW1 ([facility]) Body weight 78.93 kg 78.93 kg eCW1 ([facility]) Body height 66 [in_i] 66 [in_i] eCW1 ([facility]) Body mass index (BMI) [Ratio] 28.084 kg/m2 28.0 84 kg/m2 eCW1 ([facility]) Systolic blood pressure 118 mm[Hg] 118 mm[Hg] e CW1 ([facility]) Diastolic blood pressure 72 mm[Hg] 72 mm[Hg] eCW1 [facility]) Body weight 169.4 [lb_av] 169.4 [lb_av] eCW1 ([facility]) Body weight 76.84 kg 76.84 kg eCW1 ([facility]) Body height 66 [in_i] 66 [in_i] eCW1 ([facility]) Body mass index (BMI) [Ratio] 27.342 kg/m2 27.3 42 kg/m2 eCW1 ([facility]) Systolic blood pressure 124 mm[Hg] 124 mm[Hg] e CW1 ([facility]) Diastolic blood pressure 72 mm[Hg] 72 mm[Hg] eCW1 ([facility]) Body weight 167 [lb_av] 167 [lb_av] eCW1 ([facility]) Body weight 75.75 kg 75.75 kg eCW1 ([facility]) Body height 66 [in_i] 66 [in_i] eCW1 ([facility]) Body mass index (BMI) [Ratio] 26.95 kg/m2 26.95 kg/m2 eCW1 [facility]) Heart rate 94 /min 94 /min eCW1 ([facility]) Respiratory rate 18 /min 18 /min eCW1 ([facility]) Body temperature 98.6 [degF] 98.6 [degF] eCW1 ( [facility]) Systolic blood pressure 140 mm[Hg] 140 mm[Hg] e CW1 ([facility]) Diastolic blood pressure 82 mm[Hg] 82 mm[Hg] eCW1 ([facility]) Diastolic blood pressure 68 mm[Hg] 68 mm[Hg] eCW1 ([facility]) Body weight 165 [lb_av] 165 [lb_av] eCW1 ([facility]) Body height 66 [in_i] 66 [in_i] eCW1 ([facility]) Body mass index (BMI) [Ratio] 26.632 kg/m2 26.6 32 kg/m2 eCW1 ([facility]) Systolic blood pressure 112 mm[Hg] 112 mm[Hg] e CW1 ([facility]) Body weight 157.4 [lb_av] 157.4 [lb_av] eCW1 ([facility]) Body height 66 [in_i] 66 [in_i] eCW1 ([facility]) Body mass index (BMI) [Ratio] 25.405 kg/m2 25.4 05 kg/m2 eCW1 ([facility]) Systolic blood pressure 116 mm[Hg] 116 mm[Hg] e CW1 ([facility]) Diastolic blood pressure 64 mm[Hg] 64 mm[Hg] eCW1 ([facility]) Body weight 145.2 [lb_av] 145.2 [lb_av] eCW1 ([facility]) Body height 66 [in_i] 66 [in_i] eCW1 ([facility]) Body mass index (BMI) [Ratio] 23.436 kg/m2 23.4 36 kg/m2 eCW1 ([facility]) Systolic blood pressure 140 mm[Hg] 140 mm[Hg] e CW1 ([facility]) Diastolic blood pressure 90 mm[Hg] 90 mm[Hg] eCW1 ([facility]) Body weight 141.4 [lb_av] 141.4 [lb_av] eCW1 ([facility]) Body weight 64.14 kg 64.14 kg eCW1 ([facility]) Body height 66 [in_i] 66 [in_i] eCW1 ([facility]) Body mass index (BMI) [Ratio] 22.823 kg/m2 22.8 23 kg/m2 eCW1 ([facility]) Systolic blood pressure 130 mm[Hg] 130 mm[Hg] e CW1 ([facility]) Diastolic blood pressure 82 mm[Hg] 82 mm[Hg] eCW1 ([facility]) Body weight 134.4 [lb_av] 134.4 [lb_av] eCW1 ([facility]) Body weight 60.96 kg 60.96 kg eCW1 ([facility]) Body height 66 [in_i] 66 [in_i] eCW1 ([facility]) Body mass index (BMI) [Ratio] 21.69 kg/m2 21.69 kg/m2 eCW1 ([facility]) Heart rate 90 /min 90 /min eCW1 ([facility]) Respiratory rate 18 /min 18 /min eCW1 ([facility]) Body temperature 98.6 [degF] 98.6 [degF] eCW1 ( [facility]) Systolic blood pressure 130 mm[Hg] 130 mm[Hg] e CW1 ([facility]) Diastolic blood pressure 72 mm[Hg] 72 mm[Hg] eCW1 ([facility]) Body height 65 [in_i] 65 [in_i] eCW1 ([facility]) Body height 165.1 cm 165.1 cm eCW1 ([facility]) Body weight 135 [lb_av] 135 [lb_av] eCW1 ([facility]) Body weight 61.24 kg 61.24 kg eCW1 ([facility]) Body mass index (BMI) [Ratio] 22.46 kg/m2 22.46 kg/m2 eCW1 ([facility]) Body temperature 98.5 [degF] 98.5 [degF] eCW1 ( [facility]) Heart rate 95 /min 95 /min eCW1 ([facility]) Respiratory rate 18 /min 18 /min eCW1 ([facility]) Oxygen saturation in Arterial blood by Pulse oximetry 98 % 98 % eCW1 ([facility]) Systolic blood pressure 118 mm[Hg] 118 mm[Hg] e CW1 ([facility]) Diastolic blood pressure 70 mm[Hg] 70 mm[Hg] eCW1 ([facility]) Patient Treatment Plan of Care Planned Activity Planned Date Details Description Data Source (s) Ondansetron 4 MG Oral Tablet 10/24/2020 12:00:00 AM EDT eCW1 ([facility]) Ondansetron 4 MG Oral Tablet 10/24/2020 12:00:00 AM EDT eCW1 ([facility]) Ondansetron 4 MG Oral Tablet 10/24/2020 12:00:00 AM EDT eCW1 ([facility])
--- OUTSIDE RECORDS SUMMARY | 2021-04-27 14:12 | CCD ---
Author Author [employer] [facility] Syst ems Organization [employer]st em[employer] Address Unknown Phone Unavailable Care Team Providers Care Pin Or Clip Fastener Name Role Phone GregoryNeris gallardoe Unavailable PROBLEMS Type Condition ICD9-CM Code [id number] Code Onset Dates Condition S tatus W/U Status Risk SNOMED Code Notes Problem 11 weeks gestation of Z3A.11 Active confi rmed [id number] Problem Abnormal chromosomal and genetic finding on screening mother O28.5 Active confirmed 289350407 Problem Supervision of other normal Z34.80 Ac tive confirm [id number] ALLERGIES Allergen (clinical drug ingredient) Drug/Non Drug Allergy do cumented on EMR Reaction Allergy Type Onset Date Status acetaminophen Tylenol([facility] Code:[address]-52) Hives Drug Allergy Active ENCOUNTERS from 1995 to 2021-04-17 Encounter Location Date Provider Diagnosis [facility] [address] [place] [address] [place] [address] Apr, Majo Valencia Abnormal chromoso mal and genetic finding on screening mother O28.5 and 35 weeks gestation of Z3A.35 IMMUNIZATIONS Vaccine Route Administration Date Status TDAP [...] FOR REFERRAL No Information VITAL SIGNS Weight 178.6 lbs Apr, Weight-kg 81.01 kg Apr, Height 66 in Apr, BMI 28.827 kg/m2 Apr, Blood pressure systolic 120 mm Hg Apr, Blood pressure diastolic 80 mm Hg Apr, MEDICATIONS Medication SIG (Take, Route, Frequency, Duration) [...] months ago Active PROCEDURES No Information RESULTS No Results REASON FOR VISIT 1 wk pn MEDICAL (GENERAL) HISTORY Type Description Date Medical [...] Treatment Notes Treatm ent Clinical Notes Apr, Abnormal chromosomal and gen etic finding on screening mother (ICD-10 - O28.5) Apr, 35 weeks gestation of (ICD-10 - Z3A.35 ) PLAN OF TREATMENT Treatment Notes Test Name Order Date WWBC OBS FOLLOW UP OR REPEAT 2021-04-16 Next Appt Details 1 Week Reason:- Routine follow up Provider Name:Olga Araujo, 2021-04-24 03:40:00 PM, [address] [facility], , [place], [address], Follow Up:1 Week- Routine follow up Insurance Providers Payer Name Payer Address Payer Phone Insured Name Patient Relati onship to Insured Coverage Start Date Coverage End Date BCBS HUBER VARGAS PPO [phone] [facility] [place] [address] LANA MORTON
--- OUTSIDE RECORDS SUMMARY | 2021-04-27 14:12 | CCD | Continuity of Care Document ---
Author Author Deli Cutter Slicer, Sulema Hoffman Organization Unknown Address Unknown Phone Unavailable Care Team Providers Care Gate Supervisor Name Role Phone Olga Araujo CNM Unavailable Josh Mclean MD Unavailable Judy Carter Unavailable Unavailable Problems Suspected abnormality affecting Judy Carter management of mother, antepartum (O35.9XX0) (946.93) Allergies and Adverse Reactions No Allergy Information Available Medications No Medication Information Available Social History No Social History Information Available Tobacco smoking consumption unknown Female Plan of Treatment DOPPLER COLOR FLOW MAPPING (01498) Start: 01-Apr-2021 Int ent ECHO EXAM OF HEART, 2D (68779) Start: 01-Apr-2021 I ntent ECHO EXAM OF HEART, DOPPLER Start: 01-Apr-2021 Inte nt COMPLETE (58244) Results No Known Results No Result Information Available Vital Signs No Vital Observation Information Available Encounters Procedure Only 01-Apr-2021 13:00 Encounter Diagnosis:Suspected To 01-Apr-2021 1 2:42 abnormality affecting management of Pediatric Cardio logy mother, antepartum [facility] Payers [place] Group Number: NONE [address] [address] [place] [address] tel: Sulema Jimenez [address] [place] [address] [place] tel:
--- OUTSIDE RECORDS SUMMARY | 2021-04-27 14:12 | CCD ---
Author Author [employer] Organization [employer] Address Unknown Phone Unavailable Care Team Providers Care Director Of Music Name Role Phone Olga Araujo Unavailable PROBLEMS Type Condition ICD9-CM Code DKS69-GE Code Onset Dates Condition S tatus W/U Status Risk SNOMED Code Notes Problem Supervision of other normal Z34.80 Ac tive confirm [id number] Problem 11 weeks gestation of Z3A.11 Active confi rmed 08358531 ALLERGIES Allergen (clinical drug ingredient) Drug/Non Drug Allergy do cumented on EMR Reaction Allergy Type Onset Date Status acetaminophen Tylenol([facility] Code:[address]-56) Hives Drug Allergy Active ENCOUNTERS from 1995 to 2021-02-14 Encounter Location Date Provider Diagnosis [facility] [address] [place] [address] [place] [address] Feb, Olga Araujo Impaired glucose in , antepartum O99.810 IMMUNIZATIONS No Information SOCIAL HISTORY Tobacco Use: [...] Information RESULTS No Results REASON FOR VISIT failed glucose MEDICAL (GENERAL) HISTORY Type Description Date Medical [...] Treatment Notes Treatm ent Clinical Notes Feb, Impaired glucose in , antepartum (ICD-1 0 - O99.810) PLAN OF TREATMENT Treatment Notes Test Name Order Date Glucose WESLEY 3 HR Gestational 2021-02-13 Next Appt Details Provider Name:Majo Pranav Agrawalradha, 2021-03-06 10:40:00 AM, [address] [facility], , [place], [address], Insurance Providers Payer Name Payer Address Payer Phone Insured Name Patient Relati onship to Insured Coverage Start Date Coverage End Date BCBS HUBER VARGAS PPO [phone] [facility] [employer] [facility] [place] [address] LANA MORTON
--- OUTSIDE RECORDS SUMMARY | 2021-04-27 14:12 | CCD ---
Author Author [employer] [facility] Syst ems Organization [employer]st em[employer] Address Unknown Phone Unavailable Care Team Providers Care Infant Toddler Lead Teacher Name Role Phone Randa Vanegas Unavailable PROBLEMS Type Condition ICD9-CM Code GHP16-AU Code Onset Dates Condition S tatus W/U Status Risk SNOMED Code Notes Problem 11 weeks gestation of Z3A.11 Active confi rmed [id number] Problem Abnormal chromosomal and genetic finding on screening mother O28.5 Active confirmed 378821204 Problem Supervision of other normal Z34.80 Ac tive confirm 444082707 ALLERGIES Allergen (clinical drug ingredient) Drug/Non Drug Allergy do cumented on EMR Reaction Allergy Type Onset Date Status acetaminophen Tylenol([facility] Code:[address]-78) Hives Drug Allergy Active ENCOUNTERS from 1995 to 2021-04-16 Encounter Location Date Provider Diagnosis [facility] [address] [place] [address] [place] [address] Mar, Randa Guilherme Abnormal chromosomal and genetic finding on screening mother O28.5 ; History of delivery, currently in third trimester O09.893 and 34 weeks gestation of Z3A.34 IMMUNIZATIONS Vaccine Route Administration Date Status TDAP [...] FOR REFERRAL No Information VITAL SIGNS Weight 176.4 lbs Mar, Height 66 in Mar, BMI 28.47 kg/m2 Mar, Blood pressure systolic 152 mm Hg Mar, Blood pressure diastolic 80 mm Hg Mar, MEDICATIONS Medication SIG (Take, Route, Frequency, Duration) [...] No Information RESULTS Component Value Reference Range GROUP B STREP CULTURE Reviewed date:04/06/2021 11:16:30 Interpretation: Performing Lab:[facility], [facility] [address] [facility] [address] , ,[place] [address] REASON FOR VISIT 2 wk pn MEDICAL (GENERAL) HISTORY Type Description [...] Notes Treatment Notes Treatm ent Clinical Notes Mar, Abnormal chromosomal and gen etic finding on screening mother (ICD-10 - O28.5) Mar, History of delivery, currently in third trimester (ICD-10 - O09.893) Mar, 34 weeks gestation of (ICD-10 - Z3A.34 ) PLAN OF TREATMENT Next Appt Details 1 Week Reason:PN Provider Name:Olga Araujo, 2021-04-24 03:40:00 PM, [address] [facility], , [place], [address], Follow Up:1 WeekPN Insurance Providers Payer Name Payer Address Payer Phone Insured Name Patient Relati onship to Insured Coverage Start Date Coverage End Date BCBS HUBER [employer]SN PPO [phone] [facility] [place] [address] LANA MORTON
--- OUTSIDE RECORDS SUMMARY | 2021-04-27 14:12 | CCD ---
Author Author [employer] [facility] Syst ems Organization [employer] Syst em[employer] Address Unknown Phone Unavailable Care Team Providers Care Record Center Specialist Name Role Phone Maryanagrant Amber Unavailable PROBLEMS Type Condition ICD9-CM Code PAS41-RS Code Onset Dates Condition S tatus W/U Status Risk SNOMED Code Notes Problem Supervision of other normal Z34.80 Ac tive confirm [id number] Problem 11 weeks gestation of Z3A.11 Active confi rmed 88957068 ALLERGIES Allergen (clinical drug ingredient) Drug/Non Drug Allergy do cumented on EMR Reaction Allergy Type Onset Date Status acetaminophen Tylenol([facility] Code:[address]-01) Hives Drug Allergy Active ENCOUNTERS from 1995 to 2021-02-06 Encounter Location Date Provider Diagnosis [facility] [address] [place] [address] [place] [address] Jan, Amber Park Large breasts N62 ; Mass of upper inner quadrant of left breast N63.22 ; Mass of lower inner quadrant of left breast N63.24 ; History of benign breast biopsy Z98.890 and Family history of breast cancer Z80.3 IMMUNIZATIONS No Information SOCIAL HISTORY Tobacco Use: [...] FOR REFERRAL No Information VITAL SIGNS Weight 167 lbs Jan, Weight-kg 75.75 kg Jan, Height 66 in Jan, BMI 26.95 kg/m2 Jan, Heart Rate 94 /min Jan, Respiratory Rate 18 /min Jan, Temperature 98.6 degrees Fahrenheit Jan, Oximetry 100 Jan, Blood pressure systolic 140 mm Hg Jan, Blood pressure diastolic 82 mm Hg Jan, MEDICATIONS Medication SIG (Take, Route, Frequency, Duration) Notes Start Da te End Date Status Aspirin 81 81 MG 1 tablet Orally Once a day Active Ondansetron HCl 4 MG 1 tablet Orally every 6 hours as needed for nausea Oct, Not-Taking Keflex 500 MG 1 capsule Orally every 6 hrs for 10 day(s) 2 Jun, 2019 Not-Taking 27-1 MG 1 tablet Orally Once a day Active PROCEDURES No Information RESULTS No Results REASON FOR VISIT f/u on breast size discrepancy during , R >L, no need for imaging at f/u MEDICAL (GENERAL) HISTORY Type Description Date Medical [...] Notes Treatment Notes Treatm ent Clinical Notes Jan, Large breasts (ICD-10 - N62) The asymmetry in the breasts (R>L) Is much improved from the previous exam. I do not feel that any further intervention is needed at this time. I encouraged her to contact the clinic with any further complaints. She can follow up in the clinic on an as needed basis. All questions were answered, patient agrees with the plan Jan, Mass of upper inner quadrant of left breast (ICD -10 - N63.22) S/p Left ultrasound guided biopsy of 10:00 and 7:00 lesion on 05/2019 with me Pathology of both lesions : benign Left breast 10:00 lesion stable on sonography, 7:00 lesion was not seen on today's exam Jan, Mass of lower inner quadrant of left breast (ICD -10 - N63.24) see above Jan, History of benign breast biopsy (ICD-10 - Z98.89 0) Jan, Family history of breast cancer (ICD-10 - Z80.3) Patient does have family Hx of breast cancer in maternal great aunt in 50s. Patient's risk of breast cancer is not significantly elevated based on her Fam Hx. Jan, Other I, Dr. Park, reviewed the medical note prepared by the scribe and confirm the findings and the discussed plan. PLAN OF TREATMENT Treatment Notes Assessment Notes Clinical Notes Large breasts The asymmetry in the breasts (R>L) Is much improved from the previous exam. I do not feel that any further intervention is needed at this time. I encouraged her to contact the clinic with any further complaints. She can follow up in the clinic on an as needed basis.All questions were answered, patient agrees with the plan Mass of upper inner quadrant of left breast S/p Left u ltrasound guided biopsy of 10:00 and 7:00 lesion on 05/2019 with mePathology of both lesions : benignLeft breast 10:00 lesion stable on sonography, 7:00 lesion was not seen on today's exam Mass of lower inner quadrant of left breast see above Family history of breast cancer Patient does have fami ly Hx of breast cancer in maternal great aunt in 50s.Patient's risk of breast cancer is not significantly elevated based on her Fam Hx. Next Appt Details F/U PRN Reason: Provider Name:Majo Naikallen, 2021-02-13 10:40:00 AM, [address] [facility], , [place], [address], Insurance Providers Payer Name Payer Address Payer Phone Insured Name Patient Relati onship to Insured Coverage Start Date Coverage End Date BCBS [place] PPO [phone] [facility] [employer] [place] [address] LANA MORTON
--- OUTSIDE RECORDS SUMMARY | 2021-04-27 14:12 | CCD ---
Author Author [employer] [facility] Syst ems Organization [employer] Syst em[employer] Address Unknown Phone Unavailable Care Team Providers Care Lead Former Name Role Phone Olga Araujo Unavailable PROBLEMS Type Condition ICD9-CM Code DPP09-OI Code Onset Dates Condition S tatus W/U Status Risk SNOMED Code Notes Problem Supervision of other normal Z34.80 Ac tive confirm 848046601 Problem 11 weeks gestation of Z3A.11 Active confi ed 52574111 ALLERGIES Allergen (clinical drug ingredient) Drug/Non Drug Allergy do cumented on EMR Reaction Allergy Type Onset Date Status acetaminophen Tylenol([facility] Code:[address]-02) Hives Drug Allergy Active ENCOUNTERS from 1995 to 2021-01-28 Encounter Location Date Provider Diagnosis [facility] [address] [place] [address] [place] [address] Jan, Olga Araujo History of elieser rooney, currently in second trimester O09.892 ; Abnormal chromosomal and genetic finding on screening mother O28.5 ; 23 weeks gestation of Z3A.23 and History of gestational hypertension Z87.59 IMMUNIZATIONS No Information SOCIAL HISTORY Tobacco Use: [...] FOR REFERRAL No Information VITAL SIGNS Weight 165 lbs Jan, Height 66 in Jan, BMI 26.632 kg/m2 Jan, Blood pressure systolic 112 mm Hg Jan, Blood pressure diastolic 68 mm Hg Jan, MEDICATIONS Medication SIG (Take, Route, Frequency, Duration) Notes Start Da te End Date Status Keflex 500 MG 1 capsule Orally every 6 hrs for 10 day(s) 1 2 Jun, 2019 Not-Taking 27-1 MG 1 tablet Orally Once a day Active Aspirin 81 81 MG 1 tablet Orally Once a day Active Ondansetron HCl 4 MG 1 tablet Orally every 6 hours as needed for nausea Oct, Active PROCEDURES No Information RESULTS No Results REASON FOR VISIT 4wk pn MEDICAL (GENERAL) HISTORY Type Description Date [...] Treatment Notes Treatm ent Clinical Notes Jan, History of delivery, currently in second trimester (ICD-10 - O09.892) Jan, Abnormal chromosomal and gen etic finding on screening mother (ICD-10 - O28.5) Jan, 23 weeks gestation of (ICD-10 - Z3A.23 ) Jan, History of gestational hypertension (ICD-10 - Z8 7.59) PLAN OF TREATMENT Treatment Notes Test Name Order Date Type and Screen (D Rh Antibody Screen) 2021-01-16 CBC - Complete Blood Count 2021-01-16 Glucose Challenge Test 1 Hour 2021-01-16 Next Appt Details 4 Weeks Reason:PN Provider Name:Amber Park, 20 29-01-23 08:30:00 AM, [address] [place] [address], , [place], [address], Provider Name:Majo Valencia, 2021-02-13 10:40:00 AM, [address] [place] [address], , [place], [address], Follow Up:4 WeeksPN Insurance Providers Payer Name Payer Address Payer Phone Insured Name Patient Relati onship to Insured Coverage Start Date Coverage End Date BCBS HUBER VARGAS [facility] [phone] [facility] [place] [address] LANA MORTON
--- OUTSIDE RECORDS SUMMARY | 2021-04-27 14:12 | CCD ---
Author Author [employer] [facility] Syst ems Organization [employer] Syst ems Address Unknown Phone Unavailable Care Team Providers Care Wireline Supervisor Name Role Phone MichaRanda Kothari Unavailable PROBLEMS Type Condition ICD9-CM Code BHE05-BL Code Onset Dates Condition S tatus W/U Status Risk SNOMED Code Notes Problem 11 weeks gestation of Z3A.11 Active confi rmed 43268711 Problem Abnormal chromosomal and genetic finding on screening mother O28.5 Active confirmed 880273240 Problem Supervision of other normal Z34.80 Ac tive confirm 520689039 ALLERGIES Allergen (clinical drug ingredient) Drug/Non Drug Allergy do cumented on EMR Reaction Allergy Type Onset Date Status acetaminophen Tylenol([facility] Code:[address]-07) Hives Drug Allergy Active ENCOUNTERS from 1995 to 2021-04-18 Encounter Location Date Provider Diagnosis [facility] [address] [place] [address] [place] [address] Mar, Randa Vanegas History of d toribio, currently in third trimester O09.893 ; Abnormal findings on screening O28.9 ; 34 weeks gestation of Z3A.34 and History of gestational hypertension Z87.59 IMMUNIZATIONS Vaccine Route Administration Date Status TDAP [...] FOR REFERRAL No Information VITAL SIGNS Weight 177.2 lbs Mar, Weight-kg 80.38 kg Mar, Height 66 in Mar, BMI 28.6 kg/m2 Mar, Blood pressure systolic 132 mm Hg Mar, Blood pressure diastolic 80 mm Hg Mar, MEDICATIONS Medication SIG (Take, Route, Frequency, Duration) Notes Start Da te End Date Status Ondansetron HCl 4 MG 1 tablet Orally every 6 hours as needed for nausea Oct, Not-Taking Aspirin 81 81 MG 1 tablet Orally Once a day Active Keflex 500 MG 1 capsule Orally every 6 hrs for 10 day(s) Jun, Not-Taking 27-1 MG 1 tablet Orally Once a day gave 4 months ago Active PROCEDURES No Information RESULTS No Results REASON FOR VISIT 1 WK PN PER [facility] MEDICAL (GENERAL) HISTORY Type Description Date Medical [...] Treatment Notes Treatm ent Clinical Notes Mar, History of delivery, currently in third trimester (ICD-10 - O09.893) Mar, Abnormal findings on screening (ICD-10 - O28.9) Mar, 34 weeks gestation of (ICD-10 - Z3A.34 ) Mar, History of gestational hypertension (ICD-10 - Z8 7.59) PLAN OF TREATMENT Next Appt Details 1 Week Reason: Provider Name:Olga Araujo, 2021-04-24 03:40:00 PM, [address] [facility], , [place], [address], Follow Up:1 WeekPrenatal Insurance Providers Payer Name Payer Address Payer Phone Insured Name Patient Relati onship to Insured Coverage Start Date Coverage End Date BCBS HUBER VARGAS PPO [phone] [facility] [employer] [place] [id number] LANA MORTON
--- OUTSIDE RECORDS SUMMARY | 2021-04-27 14:12 | CCD | Continuity of Care Document ---
Author Author Hoof Trimmer, Sulema Hoffman Organization Unknown Address Unknown Phone Unavailable Care Team Providers Care Supervisor Melt House Name Role Phone Olga Araujo CNM Unavailable Josh Mclean MD Unavailable Judy Carter Unavailable Unavailable Problems Suspected abnormality affecting Judy Carter management of mother, antepartum (O35.9XX0) (782.93) Allergies and Adverse Reactions No Allergy Information Available Medications No Medication Information Available Social History No Social History Information Available Tobacco smoking consumption unknown Female Plan of Treatment DOPPLER COLOR FLOW MAPPING (12119) Start: 01-Apr-2021 Int ent ECHO EXAM OF HEART, 2D (60053) Start: 01-Apr-2021 I ntent ECHO EXAM OF HEART, DOPPLER Start: 01-Apr-2021 Inte nt COMPLETE (83867) Results No Known Results No Result Information Available Vital Signs No Vital Observation Information Available Encounters Procedure Only 01-Apr-2021 13:00 Encounter Diagnosis:Suspected To 01-Apr-2021 1 2:42 abnormality affecting management of Pediatric Cardio logy mother, antepartum [facility] Review 01-Apr-2021 12:42 [facility] Payers [place] Group Number: NONE [address] [address] [place] [address] tel: Sulema De La Torree [address] [place] [address] [place] tel:
--- OUTSIDE RECORDS SUMMARY | 2021-04-27 14:12 | CCD ---
Author Author [employer] [facility] Syst ems Organization [employer] Syst ems Address Unknown Phone Unavailable Care Team Providers Care Shopping Investigator Name Role Phone BettinaHerbert moyay Unavailable PROBLEMS Type Condition ICD9-CM Code QNT15-LP Code Onset Dates Condition S tatus W/U Status Risk SNOMED Code Notes Problem Supervision of other normal Z34.80 Ac tive confirm 574149999 Problem 11 weeks gestation of Z3A.11 Active confi rmed 09275710 ALLERGIES Allergen (clinical drug ingredient) Drug/Non Drug Allergy do cumented on EMR Reaction Allergy Type Onset Date Status acetaminophen Tylenol([facility] Code:[address]-53) Hives Drug Allergy Active ENCOUNTERS from 1995 to 2021-04-04 Encounter Location Date Provider Diagnosis [facility] [address] [place] [address] [place] [address] Mar, Randa Vanegas IMMUNIZATIONS Vaccine Route Administration Date Status TDAP [...] a day gave 4 months ago Active Ondansetron HCl 4 MG 1 tablet Orally every 6 hours as needed for nausea 15 Oct, 2020 Not-Taking Keflex 500 MG 1 capsule Orally every 6 hrs for 10 day(s) 1 2 Jun, 2019 Not-Taking Aspirin 81 81 MG 1 tablet Orally Once a day Active PROCEDURES No Information RESULTS No Results REASON FOR VISIT 1 WK PN MEDICAL (GENERAL) HISTORY Type Description Date [...] PLAN OF TREATMENT Next Appt Details Provider Name:Randa Mckeon MichaSaniya, 2021-03-2 9 09:20:00 AM, [address] [facility], , [place], [address], Insurance Providers Payer Name Payer Address Payer Phone Insured Name Patient Relati onship to Insured Coverage Start Date Coverage End Date BCBS UTIYOUNG VARGAS PPO [phone] [facility] [employer] [place] [address] LANA MORTON
--- OUTSIDE RECORDS SUMMARY | 2021-04-27 14:12 | CCD ---
Author Author [employer] [facility] Syst ems Organization [employer] Syst em[employer] Address Unknown Phone Unavailable Care Team Providers Care Global Sourcing Manager Name Role Phone Marisela Smalls Unavailable PROBLEMS Type Condition ICD9-CM Code ONI53-ZI Code Onset Dates Condition S tatus W/U Status Risk SNOMED Code Notes Problem Supervision of other normal Z34.80 Ac tive confirm 967545226 Problem 11 weeks gestation of Z3A.11 Active confi ed 56081567 ALLERGIES Allergen (clinical drug ingredient) Drug/Non Drug Allergy do cumented on EMR Reaction Allergy Type Onset Date Status acetaminophen Tylenol([facility] Code:[address]-49) Hives Drug Allergy Active ENCOUNTERS from 1995 to 2021-04-02 Encounter Location Date Provider Diagnosis [facility] [address] [place] [address] [place] [address] Mar, Marisela Smalls Uterine size date di screpancy O26.849 IMMUNIZATIONS Vaccine Route Administration Date Status TDAP [...] FOR REFERRAL No Information VITAL SIGNS Weight 175.2 lbs Mar, Weight-kg 79.47 kg Mar, Height 66 in Mar, BMI 28.278 kg/m2 10 Mar, 2021 Blood pressure systolic 120 mm Hg 10 Mar, 2021 Blood pressure diastolic 70 mm Hg Mar, MEDICATIONS Medication SIG (Take, [...] No Information RESULTS Component Value Reference Range WWBC OBS FOLLOW UP OR REPEAT Reviewed date:04/02/2021 15:54:05 Interpretation: Performing Lab:[facility],[address] [place]], ,[place] [address] REASON FOR VISIT 2 WK PN MEDICAL (GENERAL) HISTORY Type Description [...] Treatment Notes Treatm ent Clinical Notes Mar, Uterine size date discrepancy (ICD-10 - O26.849) PLAN OF TREATMENT Next Appt Details 2 Weeks Reason: Provider Name:Olga Hoffman Van, 2021-04-04 01:00:00 PM, [address] [facility], , [place], [address], Insurance Providers Payer Name Payer Address Payer Phone Insured Name Patient Relati onship to Insured Coverage Start Date Coverage End Date BCBS [place] WATSb PPO [phone] [facility] [place] [address] LANA MORTON
--- OUTSIDE RECORDS SUMMARY | 2021-04-27 14:12 | CCD ---
Author Author [facility]st ems Organization [employer] Address Unknown Phone Unavailable Care Team Providers Care Ux Design Manager Name Role Phone MichaHerbert Kothariy Unavailable PROBLEMS Type Condition ICD9-CM Code [id number] Code Onset Dates Condition S tatus W/U Status Risk SNOMED Code Notes Problem 11 weeks gestation of Z3A.11 Active confi rmed [id number] Problem Abnormal chromosomal and genetic finding on screening mother O28.5 Active confirmed [id number] Problem Supervision of other normal Z34.80 Ac tive confirm [id number] ALLERGIES Allergen (clinical drug ingredient) Drug/Non Drug Allergy do cumented on EMR Reaction Allergy Type Onset Date Status acetaminophen Tylenol([facility] Code:[address]-42) Hives Drug Allergy Active ENCOUNTERS from 1995 to 2021-04-25 Encounter Location Date Provider Diagnosis [facility] [address] [address] [place] [address] Apr, Randa Vanegas Gestational hyperten violette w/o significant proteinuria in 3rd trimester O13.3 and 37 weeks gestation of Z3A.37 IMMUNIZATIONS Vaccine Route Administration Date Status TDAP [...] FOR REFERRAL No Information VITAL SIGNS Weight 182.6 lbs 14 Apr, 2021 Weight-kg 82.83 kg 14 Apr, 2021 Height 66 in 14 Apr, 2021 BMI 29.472 kg/m2 Apr, Blood pressure systolic 122 mm Hg Apr, Blood pressure diastolic 78 mm Hg Apr, MEDICATIONS Medication SIG (Take, Route, Frequency, Duration) Notes Start Da te End Date Status Ondansetron HCl 4 MG 1 tablet Orally every 6 hours as needed for nausea 15 Oct, 2020 Not-Taking Aspirin 81 81 MG 1 tablet [...] Notes Treatm ent Clinical Notes Apr, Gestational hypertension w/o significant proteinuria in 3rd trimester (ICD-10 - O13.3) Apr, 37 weeks gestation of (ICD-10 - Z3A.37 ) PLAN OF TREATMENT Next Appt Details 1 Week Reason: Provider Name:Olga Hoffman Van, 2021-05-02 01:40:00 PM, [address] [facility], , [place], [address], Follow Up:1 WeekPrenatal Insurance Providers Payer Name Payer Address Payer Phone Insured Name Patient Relati onship to Insured Coverage Start Date Coverage End Date BCBS HUBER VARGAS PPO [phone] [facility] [place] [id number] LANA MORTON
--- OUTSIDE RECORDS SUMMARY | 2021-04-27 14:12 | CCD ---
Author Author [facility]st em[facility] Organization [employer] Address Unknown Phone Unavailable Care Team Providers Care Assembler Product Name Role Phone BettinaHerbert moyay Unavailable PROBLEMS Type Condition ICD9-CM Code [id number] Code Onset Dates Condition S tatus W/U Status Risk SNOMED Code Notes Problem 11 weeks gestation of Z3A.11 Active confi rmed [id number] Problem Abnormal chromosomal and genetic finding on screening mother O28.5 Active confirmed [id number] Problem Supervision of other normal Z34.80 Ac tive confirm [id number] ALLERGIES Allergen (clinical drug ingredient) Drug/Non Drug Allergy do cumented on EMR Reaction Allergy Type Onset Date Status acetaminophen Tylenol([facility] Code:[address]-02) Hives Drug Allergy Active ENCOUNTERS from 1995 to 2021-04-23 Encounter Location Date Provider Diagnosis [facility] [address] [place] [address] [place] [address] Apr, Randa Vanegas IMMUNIZATIONS Vaccine Route Administration Date [...] Information RESULTS No Results REASON FOR VISIT high blood pressure MEDICAL (GENERAL) HISTORY Type Description Date Medical [...] OF TREATMENT Next Appt Details Provider Name:Randa Vanegas, 2020-10-1 4 03:00:00 PM, [address] [facility], , [place], [address], Insurance Providers Payer Name Payer Address Payer Phone Insured Name Patient Relati onship to Insured Coverage Start Date Coverage End Date BCBS UTIYOUNG VARGAS PPO [phone] [facility] [employer] [place] [id number] LANA MORTON
--- OUTSIDE RECORDS SUMMARY | 2021-04-27 14:12 | CCD ---
Author Author [facility] Syst ems Organization [employer] Address Unknown Phone Unavailable Care Team Providers Care Kerrick Kleaner Operator Name Role Phone Majo Valencia Unavailable PROBLEMS Type Condition ICD9-CM Code PZH16-NC Code Onset Dates Condition S tatus W/U Status Risk SNOMED Code Notes Problem Supervision of other normal Z34.80 Ac tive confirm [id number] Problem 11 weeks gestation of Z3A.11 Active confi rmed [id number] ALLERGIES Allergen (clinical drug ingredient) Drug/Non Drug Allergy do cumented on EMR Reaction Allergy Type Onset Date Status acetaminophen Tylenol([facility] Code:[address]-38) Hives Drug Allergy Active ENCOUNTERS from 1995 to 2021-03-07 Encounter Location Date Provider Diagnosis [facility] [address] [place] [address] [place] [address] Feb, Majo Valencia Encounter for sup ervision of normal in multigravida in third trimester Z34.83 ; 30 weeks gestation of Z3A.30 and Encounter for immunization Z23 IMMUNIZATIONS Vaccine Route Administration Date Status TDAP [...] FOR REFERRAL No Information VITAL SIGNS Weight 174 lbs Feb, Weight-kg 78.93 kg Feb, Height 66 in Feb, BMI 28.084 kg/m2 Feb, Blood pressure systolic 118 mm Hg Feb, Blood pressure diastolic 72 mm Hg Feb, MEDICATIONS Medication SIG (Take, Route, Frequency, Duration) Notes Start Da te End Date Status Ondansetron HCl 4 MG 1 tablet Orally every 6 hours as needed for nausea 15 Oct, 2020 Not-Taking Aspirin 81 81 MG 1 tablet Orally Once a day Active 27-1 MG 1 tablet Orally Once a day gave 4 months ago Active Keflex 500 MG 1 capsule Orally every 6 hrs for 10 day(s) 1 Jun, Not-Taking PROCEDURES from 1995 to 2021-03-07 Procedure Date Ordered Result Body Site Imm: Boostrix 0.5mL IM TDAP 2021-03-06 N/A RESULTS No Results REASON FOR VISIT 3 WK PN MEDICAL (GENERAL) HISTORY Type Description [...] Treatment Notes Treatm ent Clinical Notes Feb, Encounter for supervision of normal in multigravida in third trimester (ICD-10 - Z34.83) Feb, 30 weeks gestation of (ICD-10 - Z3A.30 ) Feb, Encounter for immunization (ICD-10 - Z23) PLAN OF TREATMENT Next Appt Details 2 Weeks Reason:- Routine follow up Provider Name:Marisela Smalls, 2021-03-21 0 1:00:00 PM, [address] [facility], , [place], [address], Follow Up:2 Weeks- Routine follow up Insurance Providers Payer Name Payer Address Payer Phone Insured Name Patient Relati onship to Insured Coverage Start Date Coverage End Date BCBS [place] O [phone] [facility] [employer] [place] [address] LANA MORTON
--- OUTSIDE RECORDS SUMMARY | 2021-04-27 14:12 | CCD | Continuity of Care Document ---
Author Author Equal Employment Opportunity Officer, Sulema Hoffman Organization Unknown Address Unknown Phone Unavailable Care Team Providers Care Golf Tournament Consultant Name Role Phone Van SELENALonniea Unavailable Josh Mclean MD Unavailable Jose Sheets MD Unavailable Judy Carter Unavailable Unavailable Problems Persistent left SVC (superior vena cava) MD Sudeep F rank C (Q26.1) (747.49) echocardiogram recommended MD Samson Sheets Suspected abnormality affecting MD Hamilton Sheets management of mother, antepartum (O35.9XX0) (481.93) Allergies and Adverse Reactions Acetaminophen *ANALGESICS - NonNarcotic* Reaction: Hives (Allergy) Medications No Known Historical Medications Procedures ECHO EXAM OF HEART, DOPPLER Status: Completed COMPLETE ([id number]) 01-Apr-2021 Judy Carter - Procedure Note: See Note; [facility] S[facility]y ECHOCARDIOGRAPHY REPORT Pat.Name: Sulema Jimenez Pat.ID: [id number] .Date: 04/01/2021 Refer.MD: Josh Mclean M.D. Exam Time: 12:50:00 PM Study Type: Echo Age: 309/14/1995,25Y Sex: FEMALE Sonogrphr: Uma Carter Pat . Stat.:Outpatient CPT - 4: [id number] Order ID: [id number] Reason for Study: 35 5/7 weeks gestation, persistent LSVC, inconclusiv e NIPT SUMMARY: 2D STUDY: There is levocardia wit h normal atrial situs and normal chamber/vessel relationships. The chambers are normal in size, thickness and systolic function. 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 The systemic and pulmonary venous retur n is normal otherwise. There is a patent foramen ovale with a mobile flap bowing leftward in normal fashion. The ventricular septum appears intact. The cardiac valves appear normal. The outflow tracts are patent. The pulmonar y artery and branches are normal in size. The ductal arch is widely patent. The aortic arch appears patent. There is no pericardial effusion. The cardiac rhythm is regular throughout the study with synchronous atrial and ventricular contractions and a heart rate of 147 bpm, consistent with sinus rhythm. COLO R DOPPLER STUDY: The color Doppler study reveals no significant valve incompetence. There is no interventricular shunt. The pulsed/CW Doppler study reveals no valvar stenosis. The umbilical artery pulsatility index is 47-17/32 = 0.95 which is within normal limits. Umbilica l venous flow appears normal. 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 Report fax'd to the [facility] on 04/06/21. MEASUREMENTS: 2 D Aortic Valve AV mahi 0.67 cm (zsc -0.3) Mitral Valve MV mahi 0.96 cm (zsc -0.8) Pulmonic Valve PV mahi 0.77 cm (zsc -0.9) Tricuspid Valve TV mahi 1.26 cm (zsc 0.6) Cardiac Card Area 10.7 cm Chest Area Ches Area 60.6 cm Thoraci c Thor Area 0.18 cm DOPPLER Heart Rate HR 147 bpm Pulmonic Valve HR 132 bpm Signed 04/07/2021 12:17 AM Samson Sheets M.D. ; This result contain s an attachment that could not be included. Family History Family History Status: Active Comments: Her first cousin was Maday Marie, who had HLHS and in early infancy. There is no other history of CHF in the family. The 2 year old sibling is well. Social History No Social History Information Available Tobacco smoking consumption unknown Female Plan of Treatment DOPPLER COLOR FLOW MAPPING (93758) Start: 01-Apr-2021 Int ent ECHO EXAM OF HEART, 2D (15738) Start: 01-Apr-2021 I ntent Results No Known Results No Result Information Available Vital Signs No Vital Observation Information Available Encounters Office Visit 01-Apr-2021 13:00 Encounter Reason:Office Visit - Note for To 15:05 "Office Visit": I am seeing Sulema in Pediatric Ca rdiology consultation on April 01, 2021 for Coradiant echocardiography because of a previous detection of a left superior vena cava.She is a 24 year old 3 para 1 early 12 week miscarriage who is now 35 5/7 weeks with an expected date of confinement of May 15, 2021. She is accompanied by Nate Woodson, the father of the fetus.Her is followed by Dr. Kaiser in [place] and the Center. Her has been remarkable [...] are only vitamins. Delivery is planned at [facility]. Encounter Diagnosis:Suspected abnormality affecting management of mother, antepartum, echocardiogram recommended, Persistent left SVC (superior vena cava) Procedure Only 01-Apr-2021 13:00 Encounter Diagnosis:Suspected To 01-Apr-2021 1 2:42 abnormality affecting management of Pediatric Cardio logy mother, antepartum [employer] Payers BCBS of [place] Group Number: [id number] [address] [address] [place] [address] tel: Sulema Jimenez [address] tel:
--- NOTE | 2021-04-27 15:12 | HPEPDOC ---
Obstetrical History & Physical General Date of Admission Apr 27, 2021 at 14:08 History of Present Illness 25 yo female at 37 3/7 weeks by LMP c/w 6 week ultrasound (EDC=) presents for labor induction. The indication for delivery <39 weeks is chronic hypertension. No contractions. no bleeding. Information Provided By: Patient Age: 25 : 3 Term: 0 Pre-term: 1 Abortions: 1 Livin Care Care: Good Care Dating Final EDC: May 15, 2021 Final EDC by: LMP, 1st trimester (US) Antepartum Course Diagnos(e)s atypical Panorama test. Pt had evaluation at [facility]. Pt declined amniocentesis. Abnormal echocardiogram; normal variant. Past Medical History Past Medical History Medical History ob hx: 36 week VD SAB x1 med hx: hypertension Family History Significant Family History: No pertinent family hx Social History Marital Status: Single Family situation: Spouse/partner home * Smoker: non-smoker Allergies Coded Allergies: acetaminophen (Verified Allergy, Mild, HIVES/RASH, 02/07/19) Physical Examination Physical Examination GENERAL: Alert and oriented times three. BREAST: . ABDOMEN: Gravid and non-tender to touch. FETUS: Is vertex (VTX) by sterile vaginal examination (SVE), fetus is vertex (VTX) by Gabriel. HEART RATE: Regular rate and rhythm. LUNGS: Clear to auscultation (CTA). EXTREMITIES: No edema. No clonus. Deep tendon reflexes (DTRs) + . Laboratory Data 24H LABS Laboratory Tests 2 04/27/21 14:13: Serology Scanned Report Hepatitis B Testing Pertinent Laboratoy Data Group B Streptococcus: Negative Vaginal Examination Dilation: 1cm Effacement: 50% Station: -2 Cervical Consistency: Medium Cervical Position: Posterior Presentation: Cephalic presentation Assessment Variability: Moderate Accelerations: Positive Decelerations: None Tocometer Contractions: No Assessment/Plan Assessment Pt is a 25-year-old (G)3 para (P)0111 at 37+3 weeks by LMP c/w 6-week ultrasound presents to Labor and Delivery due to chronic hypertension. Plan Admit and orient. Lease Examiner and consent. Diet: regular. Group B Streptococcus (GBS) negative. Anticipate normal spontaneous delivery (). C-S as appropriate. MARTHA GRACIA MD Apr 27, 2021 15:11
[2021-04-27] MEDS: miSOPROStol 50MCG 1/2 TABLET SL SCH ×2 (15:59→21:23)
[2021-04-27 16:14] LABS: HEMATOCRIT 36.4 % (36.0-47.0); HEMOGLOBIN 12.2 g/dl (12.0-15.5); MEAN CORPUSCULAR HEMOGLOBIN 28.3 pg (27.0-33.0); MEAN CORPUSCULAR HGB CONC 33.5 g/dl (32.0-36.5); MEAN CORPUSCULAR VOLUME 84.5 fl (80.0-96.0); PLATELET COUNT, AUTOMATED 196 10^3/uL (150-450); RED BLOOD COUNT 4.31 10^6/uL (4.00-5.40); WHITE BLOOD COUNT 9.5 10^3/uL (4.0-10.0)
[2021-04-27] MEDS ORDERED: PRENTAB9 PO (16:34)
[2021-04-27] MEDS ORDERED: ASPI81CH33 PO (16:34)
[2021-04-27] MEDS ORDERED: HOME MED LIST COMPLETE! XX SCH (16:35)
[2021-04-28] VITALS (30 sets, daily range): BP systolic 87–157; BP diastolic 49–88
[2021-04-28] MEDS: miSOPROStol 50MCG 1/2 TABLET SL SCH (01:54)
[2021-04-28] MEDS ORDERED: LR 1,000 ML IV ONE (05:10)
[2021-04-28] MEDS ORDERED: FENTANYL 2MCG/ML ROPIVACAINE 0.2% IN 0.9% NACL 100ML IVBAG As Ordered ONE (05:19)
[2021-04-28] MEDS ORDERED: OXYTOCIN 30 UNITS IN 0.9% NaCl 500ML IV BAG (J2590) As Ordered ONE (07:22)
[2021-04-28] MEDS ORDERED: METHYLERGONOVINE MALEATE 0.2 MG/ML VIAL (J2210) IM PRN (07:35)
[2021-04-28] MEDS ORDERED: CARBOPROST TROMETHAMINE 250 MCG/ML AMP IM PRN (07:35)
[2021-04-28] MEDS ORDERED: OXYTOCIN DRIP 30 UNITS in IV 1 EA IV PRN (07:35)
[2021-04-28] MEDS ORDERED: LR 1,000 ML IV SCH (07:35)
[2021-04-28] MEDS ORDERED: TRANEXAMIC ACID INJection 1,000 MG in NS 100 ML IV PRN (07:35)
[2021-04-28] MEDS ORDERED: diphenhydrAMINE 50MG/ML VIAL (J1200) IV PRN (07:55)
[2021-04-28] MEDS ORDERED: REFRIGERATOR IV KEYS XX PRN (07:55)
[2021-04-28] MEDS ORDERED: EPIDURAL/PCA KEYS XX PRN (07:55)
[2021-04-28] MEDS ORDERED: ePHEDrine SULFATE 25 MG/5 ML(5MG/ML) SYRINGE IV PRN (07:55)
[2021-04-28] MEDS ORDERED: FENTANYL/ROPIVACAINE/NACL BAG 100 ML EPIDURAL SCH (07:55)
[2021-04-28] MEDS ORDERED: LACTATED RINGER'S 1000 ML IV PRN (07:55)
[2021-04-28] MEDS ORDERED: NALOXONE INJ 0.4MG/1ML VIAL (J2310 PER 1MG) IV PRN (07:55)
[2021-04-28] MEDS ORDERED: ONDANSETRON 4MG/2ML VIAL IV PRN (07:55)
[2021-04-28] MEDS ORDERED: EPIDURAL COMMENT XX SCH (07:55)
--- NOTE | 2021-04-28 08:34 | DNPDOC ---
[facility] Delivery Note Delivery Note DATE OF DELIVERY: 04/28/2021 at 0748 PREDELIVERY DIAGNOSIS: 37-3/7 weeks' gestation and induction of labor. POST DELIVERY DIAGNOSIS: Delivered. PROCEDURE: Spontaneous vaginal delivery. HOURLY ASSOCIATE: Christina Araujo CNM and ERIC Grace ANESTHESIA: epidural. ESTIMATED BLOOD LOSS: 350 mL. FINDINGS: 6 pound 5 ounce, 2870 gm male infant, Score 9/9, gestational hypertension. DELIVERY SUMMARY: Sulema is a 25-year-old 3 now para 2-0-1-2 who was admitted to labor and delivery for induction of labor for gestational hypertension. She received cytotec for induction of labor. She progressed to fully dilated at 0717. AROM at 0745 with clear fluid and pushed to a living male in JER with restitution to ROT. The anterior shoulder was delivered with gentle downward traction and the corpus followed. The was placed on the maternal abdomen active and crying with stimulation. Cord clamped after two minutes and cut by father of baby. A three vessel cord was noted. Placenta delivered spontaneously via [place] at 0754 with membranes intact. Uterine hemostasis was achieved via rapid infusion of IV Pitocin and fundal massage. The vagina, cervix, and perineum was inspected and a first degree perineal laceration and a right labial first degree laceration were repaired with 3.[address]-1. Mom plans to breastfeed. Mom and dad have named him Georges. All counts of instruments and sponges are correct. Both mom and baby are in stable condition. CHRISTINA ARAUJO CNM Apr 28, 2021 08:34
[2021-04-28] MEDS ORDERED: DIBUCAINE 1% OINTMENT 30GM TOP PRN (08:45)
[2021-04-28] MEDS ORDERED: ANUSOL HC CREAM 30GM TOP PRN (08:45)
[2021-04-28] MEDS ORDERED: IBUPROFEN 800 MG TAB PO PRN (08:45)
[2021-04-28] MEDS ORDERED: IBUPROFEN 600MG TAB PO PRN (08:45)
[2021-04-28] MEDS ORDERED: MEASLES,MUMPS,RUBELLA VACCINE INJ (MMR-II) (90707) SC SCH (08:45)
[2021-04-28] MEDS ORDERED: MOM 30ML SUSPENSION UDC PO PRN (08:45)
[2021-04-28] MEDS ORDERED: RHOGAM 300 MCG (1500 IU) INJ (J2790) IM SCH (08:45)
[2021-04-28] MEDS: PRENATAL VITAMINS CHEWABLE TABLET PO SCH (09:00)
[2021-04-28] MEDS: DOCUSATE SODIUM 100MG CAPSULE PO PRN (21:21)
[2021-04-29 06:00] VITALS: BP 122/78
[2021-04-29] MEDS: PRENATAL VITAMINS CHEWABLE TABLET PO SCH (07:26)
[2021-04-29 18:00] VITALS: BP 111/68
[2021-04-29] MEDS: DOCUSATE SODIUM 100MG CAPSULE PO PRN (20:57)
[2021-04-30 06:00] VITALS: BP 116/64
[2021-04-30] MEDS: PRENATAL VITAMINS CHEWABLE TABLET PO SCH (10:36)
== END 2021-04-30 12:35 | disposition home or self-care (01) | DRG 560 ==
LOC: M LDI 14:08 → M OBS 04-28 09:54
PROVIDERS: ADMIT Specialist; ATTEND Specialist
PROC: 3E0DXGC Introduction of Other Therapeutic Substance into Mouth and Pharynx, External Approach (ICD-10-PCS; 2021-04-27)
PROC: 10E0XZZ Delivery of Products of Conception, External Approach (ICD-10-PCS; principal; 2021-04-28)
PROC: 10907ZC Drainage of Amniotic Fluid, Therapeutic from Products of Conception, Via Natural or Artificial Opening (ICD-10-PCS; 2021-04-28)
PROC: 0HQ9XZZ Repair Perineum Skin, External Approach (ICD-10-PCS; 2021-04-28)
DX: O13.4 Gestational [pregnancy-induced] hypertension without significant proteinuria, complicating childbirth (principal); O70.0 First degree perineal laceration during delivery; Z37.0 Single live birth; Z3A.37 37 weeks gestation of pregnancy

== ENCOUNTER → 2021-08-13 | Outpatient (REF) | payer BC ==
[~2021-08-13] MED LIST changes: +ASPI81CH33 PO; +PRENTAB9 PO
== END ==
LOC: M SFHCWAGY 11:19
PROVIDERS: ATTEND Advanced Practice Midwife
DX: Z12.4 Encounter for screening for malignant neoplasm of cervix (principal); N76.0 Acute vaginitis

== ENCOUNTER → 2023-02-09 | Outpatient (REF) | payer OTHER ==
[~2023-02-09] MED LIST changes: -LABE100T5 PO; +LABE100T71 PO
== END ==
LOC: M SFHCWAGY 17:30
PROVIDERS: ATTEND Obstetrics & Gynecology
DX: Z12.4 Encounter for screening for malignant neoplasm of cervix (principal)

== ENCOUNTER 2024-06-17 14:06 | Emergency (ER) | payer OTHER ==
[~2024-06-17] VITALS: Ht 167.6 cm; Wt 75.5 kg
[~2024-06-17 14:06] MED LIST changes: +LABE100T40 PO; -LABE100T71 PO
[2024-06-17 15:23] LABS: BASO # 0.1 10^3/uL (0.0-0.2); BASO % 0.7 % (0.0-1.0); EOS # 0.1 10^3/uL (0.0-0.5); EOS % 1.6 % (0.0-3.0); HEMOGLOBIN 13.2 g/dl (12.0-15.5); LYMPH # 1.7 10^3/uL (1.5-5.0); LYMPH % 23.7 % (24.0-44.0); MEAN CORPUSCULAR HEMOGLOBIN 28.4 pg (27.0-33.0); MEAN CORPUSCULAR HGB CONC 33.8 g/dl (32.0-36.5); MEAN CORPUSCULAR VOLUME 83.9 fl (80.0-96.0); MONO # 0.5 10^3/uL (0.0-0.8); MONO % 7.2 % (2.0-8.0); NEUTROPHILS # 4.9 10^3/uL (1.5-8.5); NEUTROPHILS % 66.5 % (36.0-66.0); PLATELET COUNT, AUTOMATED 307 10^3/uL (150-450); RED BLOOD COUNT 4.65 10^6/uL (4.00-5.40); WHITE BLOOD COUNT 7.3 10^3/uL (4.0-10.0)
[2024-06-17 15:29] LABS: APPEARANCE, URINE CLEAR (CLEAR); BACTERIA, URINE AUTO NEGATIVE (NEGATIVE); BILIRUBIN, URINE AUTO NEGATIVE (NEGATIVE); BLOOD, URINE BLOOD 3+ (NEGATIVE); COLOR, URINE YELLOW (YELLOW); GLUCOSE, URINE (UA) AUTO NEGATIVE (NEGATIVE); KETONE, URINE AUTO TRACE mg/dL (NEGATIVE); LEUKOCYTE ESTERASE, URINE AUTO NEGATIVE (NEGATIVE); MUCUS, URINE SMALL (NEGATIVE); NITRITE, URINE AUTO NEGATIVE (NEGATIVE); PROTEIN, URINE AUTO NEGATIVE (NEGATIVE); RBC, URINE AUTO 31 /HPF (0-3); SPECIFIC GRAVITY URINE AUTO 1.011 (1.002-1.035); SQUAMOUS EPITHELIAL CELL UR AU 1 /HPF (0-6); UROBILINOGEN, URINE AUTO 0.2 mg/dL (0.0-2.0); WBC, URINE AUTO 2 /HPF (0-3)
[2024-06-17 15:44] LABS: BLOOD UREA NITROGEN 11 MG/DL (9-23); CALCIUM LEVEL 10.4 MG/DL (8.5-10.1); CARBON DIOXIDE LEVEL 25 MMOL/L (20-31); CHLORIDE LEVEL 103 MMOL/L (98-107); CREATININE FOR GFR 0.62 MG/DL (0.55-1.30); GLOMERULAR FILTRATION RATE > 60.0 (>60); GLUCOSE, FASTING 92 MG/DL (60-100); POTASSIUM SERUM 3.5 MMOL/L (3.5-5.1); SODIUM LEVEL 138 MMOL/L (136-145)
[2024-06-17 16:09] LABS: HCG, SERUM QUANTITATIVE 47045.2 MIU/ML (<4.2)
[2024-06-17 17:17] VITALS: BP 119/72; TEMP 99.1; O2SAT 100
== END 2024-06-17 17:20 | disposition home or self-care (01) ==
LOC: M ED 14:06
DX: O03.9 Complete or unspecified spontaneous abortion without complication (principal); N93.9 Abnormal uterine and vaginal bleeding, unspecified; Z88.8 Allergy status to other drugs, medicaments and biological substances; Z79.810 Long term (current) use of selective estrogen receptor modulators (SERMs)

== ENCOUNTER → 2024-06-27 | Outpatient (CLI) | payer OTHER | LOC: M PLALAB 08:55 | PROVIDERS: ATTEND Advanced Practice Midwife | DX: O20.9 Hemorrhage in early pregnancy, unspecified (principal) ==

== ENCOUNTER → 2024-11-09 | Outpatient (CLI) | payer OTHER | LOC: M RAD 10:18 | PROVIDERS: ATTEND Advanced Practice Midwife | DX: O20.9 Hemorrhage in early pregnancy, unspecified (principal) ==

== ENCOUNTER → 2024-11-16 | Outpatient (CLI) | payer OTHER | LOC: M PLALAB 14:43 | PROVIDERS: ATTEND Obstetrics & Gynecology | DX: O20.9 Hemorrhage in early pregnancy, unspecified (principal) ==

== ENCOUNTER → 2024-11-18 | Outpatient (CLI) | payer OTHER | LOC: M LAB 15:57 | PROVIDERS: ATTEND Obstetrics & Gynecology | DX: O20.9 Hemorrhage in early pregnancy, unspecified (principal) ==

== ENCOUNTER → 2025-02-19 | Outpatient (CLI) | payer OTHER | LOC: M PLALAB 09:42 | PROVIDERS: ATTEND Obstetrics & Gynecology | DX: N96 Recurrent pregnancy loss (principal) ==

== ENCOUNTER → 2025-02-21 | Outpatient (CLI) | payer OTHER | LOC: M PLALAB 10:30 | PROVIDERS: ATTEND Obstetrics & Gynecology | DX: N96 Recurrent pregnancy loss (principal) ==

== ENCOUNTER → 2025-04-30 | Outpatient (CLI) | payer OTHER ==
[2025-04-30 15:18] LABS: PLATELET COUNT, AUTOMATED 326 10^3/uL (150-450)
[2025-04-30 16:20] LABS: HIV 1&2 SCREEN NEGATIVE (NEGATIVE)
[2025-04-30 16:22] LABS: Trichomonas vaginalis (AMP) NOT DETECTED (NEGATIVE)
[2025-04-30 16:28] LABS: HEPATITIS C VIRUS ABY INDEX < 0.02 INDEX (<0.8)
[2025-04-30 16:45] LABS: GC DNA AMPLIFICATION NEGATIVE (NEGATIVE)
== END ==
LOC: M PLALAB 13:13
PROVIDERS: ATTEND Student in an Organized Health Care Education/Training Program
DX: Z34.01 Encounter for supervision of normal first pregnancy, first trimester (principal)

== ENCOUNTER → 2025-05-15 | Outpatient (RCR) | LOC: M EMPSKH 04-18 13:57 | PROVIDERS: ATTEND Family Medicine | DX: Z20.828 Contact with and (suspected) exposure to other viral communicable diseases (principal) ==

== ENCOUNTER → 2025-06-04 | Outpatient (CLI) | payer OTHER | LOC: M WHC 10:06 | PROVIDERS: ATTEND Obstetrics & Gynecology | DX: Z34.92 Encounter for supervision of normal pregnancy, unspecified, second trimester (principal) ==

== ENCOUNTER → 2025-06-26 | Outpatient (CLI) | payer OTHER | LOC: M WHC 11:15 | PROVIDERS: ATTEND Obstetrics & Gynecology | DX: Z34.82 Encounter for supervision of other normal pregnancy, second trimester (principal) ==